=== PATIENT | female | born 1965 | race Caucasian/White ===

== ENCOUNTER 2019-12-01 08:59 | Outpatient (CLI) | payer MEDICARE, SELFPAY ==
[2019-12-01 09:13] LABS: Basophils Absolute Auto 0.05 K/mm3 (0.00-0.10); Basophils Percent Auto 0.6 % (0.0-1.0); Eosinophils Absolute Auto 0.21 K/mm3 (0.02-0.50); Eosinophils Percent Auto 2.4 % (1.0-6.0); Hematocrit 45.3 % (35.0-49.0); Hemoglobin 15.5 g/dL (12.0-15.0); Immature Granulocyte Absolute 0.04 K/mm3 (0.00-0.00); Immature Granulocyte Percent A 0.5 % (0.0-0.0); Lymphocytes Absolute Auto 1.72 K/mm3 (1.10-4.50); Lymphocytes Percent Auto 19.6 % (18.0-42.0); Mean Corpuscular HGB Conc 34.2 g/dL (32.0-36.0); Mean Corpuscular Hemoglobin 29.8 pg (27.0-31.0); Mean Corpuscular Volume 87.1 fL (78.0-102.0); Mean Platelet Volume 10.3 fl (9.2-11.8); Monocytes Absolute Auto 0.57 K/mm3 (0.10-0.90); Monocytes Percent Auto 6.5 % (2.0-11.0); Neutrophils Absolute Auto 6.2 K/mm3 (1.7-7.2); Neutrophils Percent Auto 70.4 % (50.0-70.0); Platelet Count Result 262 K/mm3 (150-420); Red Cell Distribution Width 12.1 % (11.6-14.4); White Blood Count 8.8 K/mm3 (4.8-10.8)
[2019-12-01 09:14] LABS: Add Urine Microscopic? NO; Appearance Urine Clear (Clear); Bilirubin Urine Negative (Negative); Blood Urine Negative (Negative); Color Urine Yellow (Yellow); Glucose Urine UA Negative (Negative); Ketones Urine Negative (Negative); Leukocyte Esterase Ur Negative (Negative); Nitrate Urine Negative (Negative); Protein Urine Negative (Negative); Specific Grav Ur <= 1.005 (1.010-1.020); Urobilinogen Urine 0.2 mg/dL (0.2-1.0)
[2019-12-01 10:30] LABS: Alanine Aminotransferase 33 U/L (14-59); Albumin Level 3.8 g/dL (3.4-5.0); Alkaline Phosphatase 59 U/L (46-116); Anion Gap 15.7 mmol/L (7-16); Aspartate Amino Transferase 26 U/L (15-37); Bilirubin,Total 0.2 mg/dL (0.00-1.00); Blood Urea Nitrogen 4 mg/dL (7-18); Calcium 9.1 mg/dL (8.5-10.1); Carbon Dioxide 29 mmol/L (21-32); Chloride 104 mmol/L (98-108); Cholesterol 174 mg/dL (0-200); Estimated Glomerular Filt Rate > 60; Glucose 113 mg/dL (70-99); HDL Direct 28 mg/dL (40-60); LDL Cholesterol Calculated 96 mg/dL (<130); Osmolality Calculated 297 mOsm/kg (285-295); Potassium 3.7 mmol/L (3.5-5.1); Sodium 145 mmol/L (136-145); Thyroid Stimulating Hormone 1.53 uIU/mL (0.36-3.74); Triglycerides 251 mg/dL (0-150)
== END 2019-12-01 09:00 | disposition home or self-care (01) ==
LOC: CHSLAB 09:02
PROVIDERS: PCP Internal Medicine; Visit Provider Internal Medicine
DX: E78.5 Hyperlipidemia, unspecified (principal); I10 Essential (primary) hypertension
CPT/HCPCS: 36415; 80053; 80061; 81003; 84443; 85025

== ENCOUNTER 2021-01-18 12:11 | Emergency (ER) | payer MEDICARE, MEDICAID, SELFPAY ==
[2021-01-18 12:20] VITALS: BP 151/81; PULSE 79; RESP 16; TEMP 37.1; O2SAT 96
--- NOTE | 2021-01-18 13:05 | ED.EYEPROB ---
HPI - Eye Problem General Chief complaint: Eye Problems Stated complaint: swelling around R eye Time Seen by Provider: 01/18/21 12:50 Source: patient Mode of arrival: ambulatory Limitations: no limitations History of Present Illness HPI Narrative: Patient comes in with swelling in lower right eyelid, medial aspect, which is not painful, but has continued to swell. She has been putting a warm washcloth on it hoping it will drain. Discomfort there is dull and mild, ongoing. She has had no fever or chills. Related Data Allergies Allergy/AdvReac Type Severity Reaction Status Date / Time citalopram Allergy Mild Hives Verified 01/18/21 13:33 iodine Allergy Mild Hives Verified 01/18/21 13:33 iohexol Allergy Hives Verified 01/18/21 13:33 [From contrast - CT, X-RAY] codeine AdvReac Mild Nausea Verified 01/18/21 13:33 hydrocodone AdvReac Mild Nausea Unverified 01/18/21 13:33 Review of Systems Constitutional: Constitutional: Reports no additional constitutional complaints Eyes: Comments: eye swelling in lower lid developed over days and has not been painful. ENT: Reports system reviewed and no additional complaints, except as documented Cardiovascular: Cardiovascular: Reports no additional cardiovascular complaints Respiratory: Respiratory: Reports no additional respiratory complaints Gastrointestinal: Gastrointestinal: Reports no additional gastrointestinal complaints Genitourinary: Genitourinary: Reports no additional female genitourinary complaints Musculoskeletal: Musculoskeletal: Reports no additional musculoskeletal complaints Integumentary/Breasts: Skin/Breast: Reports system reviewed and no additional complaints, except as docu Neurologic: Reports system reviewed and no additional complaints, except as documented Psychiatric: Psychiatric: Reports no additional psychiatric complaints Endocrine: Endocrine: Reports no additional endocrine complaints Hematologic/Lymphatic: Hematologic/Lymphatic: Reports no additional hematologic/lymphatic complaints Allergic/Immunologic: Allergic/Immunologic: Reports no additional allergic/immunologic complaints PMFSH Past Medical History Medical History Bipolar disorder Chronic obstructive pulmonary disease Leg fracture, left Surgical History Surgical History H/O section History of cryosurgery Family History Family History Father Acute myocardial infarction Mother Acute myocardial infarction Cerebrovascular accident Social History Social History Smoking packs per day: 1 Smoking cigarettes per day: 20.0 Years smoked: 30 Smoking pack-years: 30.00 Smoking status: Current every day smoker Tobacco type: cigarettes Second hand tobacco smoke exposure: No Alcohol intake: never Substance use: never Substance use type: does not use Gender identity (if verbalized by the patient): Female Spiritual care concerns: No Agree to blood products: Yes Exam Const: General: no acute distress and alert Orientation/consciousness: patient oriented x3 HENMT: Ears: external ears normal and TM's normal bilaterally General nose exam: Normal external nose present and Normal nares present Mouth: Yes Normal oral and palatal mucosa present Throat: posterior oropharynx normal Eyes: Conjunctivae: conjunctivae normal Other: She has what appears to be a chalazion on the lower lid on the right side. This is not really tender to touch Neck: Neck: normal visual inspection Chest: Chest palpation & inspection: normal inspection of the chest Resp: Effort & Inspection: normal respiratory effort Auscultation: clear to auscultation bilaterally Cardio: Rate: regular rate Rhythm: regular rhythm GI: Auscultation: normal bowel sounds Skin: General skin e
[2021-01-18 13:30] VITALS: RESP 16
== END 2021-01-18 13:30 | disposition home or self-care (01) ==
PROVIDERS: Emergency Provider Emergency Medicine; PCP Internal Medicine
DX: H00.12 Chalazion right lower eyelid (principal)
CPT/HCPCS: 99281; 99282

== ENCOUNTER 2021-02-03 10:13 | Outpatient (CLI) | payer MEDICARE, SELFPAY ==
[2021-02-03 10:28] LABS: Basophils Absolute Auto 0.04 K/mm3 (0.00-0.10); Basophils Percent Auto 0.5 % (0.0-1.0); Eosinophils Absolute Auto 0.11 K/mm3 (0.02-0.50); Eosinophils Percent Auto 1.3 % (1.0-6.0); Hematocrit 45.6 % (35.0-49.0); Hemoglobin 15.4 g/dL (12.0-15.0); Immature Granulocyte Absolute 0.06 K/mm3 (0.00-0.00); Immature Granulocyte Percent A 0.7 % (0.0-0.0); Lymphocytes Absolute Auto 2.32 K/mm3 (1.10-4.50); Lymphocytes Percent Auto 27.3 % (18.0-42.0); Mean Corpuscular HGB Conc 33.8 g/dL (32.0-36.0); Mean Corpuscular Hemoglobin 29.3 pg (27.0-31.0); Mean Corpuscular Volume 86.9 fL (78.0-102.0); Mean Platelet Volume 10.4 fl (9.2-11.8); Monocytes Absolute Auto 0.64 K/mm3 (0.10-0.90); Monocytes Percent Auto 7.5 % (2.0-11.0); Neutrophils Absolute Auto 5.3 K/mm3 (1.7-7.2); Neutrophils Percent Auto 62.7 % (50.0-70.0); Platelet Count Result 235 K/mm3 (150-420); Red Blood Count 5.25 M/mm3 (4.20-5.40); White Blood Count 8.5 K/mm3 (4.8-10.8)
[2021-02-03 10:32] LABS: Add Urine Microscopic? NO; Appearance Urine Clear (Clear); Bilirubin Urine Negative (Negative); Blood Urine Negative (Negative); Color Urine Yellow (Yellow); Glucose Urine UA Negative (Negative); Ketones Urine Negative (Negative); Leukocyte Esterase Ur Negative (Negative); Nitrate Urine Negative (Negative); Protein Urine Negative (Negative); Specific Grav Ur <= 1.005 (1.010-1.020); Urobilinogen Urine 0.2 mg/dL (0.2-1.0); pH Urine 5.5 (5.0-8.0)
[2021-02-03 11:10] LABS: Alanine Aminotransferase 34 U/L (14-59); Albumin Level 3.9 g/dL (3.4-5.0); Alkaline Phosphatase 68 U/L (46-116); Anion Gap 7 mmol/L (8-16); Aspartate Amino Transferase 19 U/L (15-37); Bilirubin,Total 0.4 mg/dL (0.00-1.00); Blood Urea Nitrogen 5 mg/dL (7-18); Calcium 9.3 mg/dL (8.5-10.1); Carbon Dioxide 32 mmol/L (21-32); Chloride 100 mmol/L (98-108); Cholesterol 175 mg/dL (0-200); Estimated Glomerular Filt Rate > 60; Glucose 74 mg/dL (70-99); HDL Direct 29 mg/dL (40-60); LDL Cholesterol Calculated 108 mg/dL (<130); Osmolality Calculated 284 mOsm/kg (285-295); Potassium 3.1 mmol/L (3.5-5.1); Sodium 139 mmol/L (136-145); Thyroid Stimulating Hormone 1.05 uIU/mL (0.36-3.74); Total Protein 7.2 g/dL (6.4-8.2); Triglycerides 190 mg/dL (0-150)
== END 2021-02-03 10:14 | disposition home or self-care (01) ==
LOC: CHSLAB 10:15
PROVIDERS: PCP Internal Medicine; Visit Provider Internal Medicine
DX: I10 Essential (primary) hypertension (principal); E78.5 Hyperlipidemia, unspecified
CPT/HCPCS: 36415; 80053; 80061; 81003; 83735; 84443; 85025

== ENCOUNTER 2021-02-15 09:43 | Outpatient (CLI) | payer MEDICARE, MEDICAID, SELFPAY ==
--- NOTE | ~2021-02-15 | MR_ITS ---
EXAMINATION: MR knee LT wo con DATE: 02/15/2021 10:58 INDICATION: Left knee pain. TECHNIQUE: Magnetic resonance imaging (MRI) of the left knee was performed without intravenous contra st. Sequences included axial PD-weighted FS FSE, coronal PD-weighted FSE and PD-weighted FS FSE, sagi ttal PD-weighted FSE, and sagittal T2-weighted FS FSE. COMPARISON: Left knee radiographs 04/11/2019 FINDINGS: Medial compartment: There is an undersurface horizontal tear of body and posterior horn of medial meniscus. There is cart ilage surface irregularity of tibial condyle and femoral condyle. Lateral compartment: Lateral meniscus is normal. There is cartilage surface irregularity of tibial condyle. Femoral cartil age is normal. Patellofemoral compartment: Patellar cartilage is normal. Trochlear cartilage is normal. Ligaments and tendons: The anterior and posterior cruciate ligaments are normal. Medial collateral ligament and lateral bladimir ateral ligament complex are normal. The extensor mechanism is normal. Fluid: There is a small knee joint effusion. There is trace fluid in a Penaloza's cyst. There is mild prepatell ar bursitis. IMPRESSION: 1. Mild chondrosis of medial and lateral compartments. 2. Tear of medial meniscus. 3. Small knee joint effusion. Reviewed, dictated and finalized at location A.
== END 2021-02-15 09:44 | disposition home or self-care (01) ==
LOC: CHSIMG 09:45
PROVIDERS: PCP Internal Medicine; Visit Provider Internal Medicine
DX: M25.562 Pain in left knee (principal); M25.362 Other instability, left knee
CPT/HCPCS: 73721

== ENCOUNTER 2021-05-17 13:10 | Emergency (ER) | payer MEDICARE, MEDICAID, SELFPAY ==
--- NOTE | ~2021-05-17 | XR_ITS ---
EXAMINATION: XR chest 2V DATE: 05/17/2021 13:33 INDICATION: Cough and shortness of breath TECHNIQUE: PA and lateral views of the chest are obtained. COMPARISON: 10/25/2019 FINDINGS: The lungs are free of acute opacities. There is no pleural effusion or pneumothorax. The ca rdiomediastinal silhouette is normal. The visualized bones and soft tissues are unremarkable. IMPRESSION: 1. No acute cardiopulmonary abnormality. Reviewed, dictated and finalized at location A.
[2021-05-17 13:12] VITALS: BP 145/81; PULSE 97; RESP 24; TEMP 36.6; O2SAT 96
--- NOTE | 2021-05-17 13:15 | ECG_ITS ---
Measurements Intervals [place] Rate: 83 P: 65 NV: 173 QRS: 142 QRSD: 84 T: 50 QT: 377 QTc: 445 Interpretive Statements SINUS RHYTHM INCOMPLETE RIGHT BUNDLE BRANCH BLOCK LOW VOLTAGE- PRECORDIAL LEADS BASELINE ARTIFACT- I, II, AVR, AVL, V4 BORDERLINE ECG Electronically Signed On 05-17-2021 20:01:03 CDT by Casimiro Fritz D.O.
[2021-05-17 13:41] LABS: Basophils Absolute Auto 0.1 K/mm3 (0.0-0.1); Basophils Percent Auto 0.4 % (0.2-1.2); Eosinophils Absolute Auto 0.1 K/mm3 (0-0.3); Eosinophils Percent Auto 0.7 % (0-4.4); Hematocrit 46.6 % (37.0-47.0); Hemoglobin 15.5 g/dL (12.0-15.0); Immature Granulocyte Absolute 0.05 K/mm3 (0.00-0.031); Immature Granulocyte Percent A 0.4 % (0-0.5); Lymphocytes Absolute Auto 1.43 K/mm3 (0.9-3.2); Lymphocytes Percent Auto 12.5 % (18.3-44.2); Mean Corpuscular HGB Conc 33.3 g/dl (32-36); Mean Corpuscular Hemoglobin 28.7 pg (26-34); Mean Corpuscular Volume 86.3 fl (80-100); Mean Platelet Volume 10.6 fl (7.4-10.4); Monocytes Absolute Auto 0.6 K/mm3 (0.1-0.6); Monocytes Percent Auto 5.6 % (2.6-8.5); Neutrophils Absolute Auto 9.2 K/mm3 (1.3-6.7); Neutrophils Percent Auto 80.4 % (45.5-73.1); Platelet Count Result 230 k/mm3 (150-375); Red Cell Distribution Width 12.9 % (11.5-14.5); White Blood Count 11.4 K/mm3 (4.5-10.0)
[2021-05-17 13:53] LABS: Anion Gap 11 mmol/L (8-16); Blood Urea Nitrogen 4 mg/dL (7-17); Calcium 9.8 mg/dL (8.4-10.2); Carbon Dioxide 26 mmol/L (22-30); Chloride 104 mmol/L (98-107); Estimated CRCL calculation 73 ml/min; Estimated Glomerular Filt Rate > 60; Glucose 106 mg/dL (65-110); Potassium 3.5 mmol/L (3.4-5.0); Sodium 141 mmol/L (137-145)
[2021-05-17 15:15] LABS: Alanine Aminotransferase 33 U/L (4-35); Albumin Level 4.7 g/dL (3.5-5.1); Alkaline Phosphatase 61 U/L (38-126); Aspartate Amino Transferase 33 U/L (14-36); Bilirubin,Total 0.3 mg/dL (0.2-1.3)
[2021-05-17] MEDS: IPRATROPIUM BR 0.02% INH SOLN 0.5 MG/2.5 ML VIAL INHALATION ×3 (15:18→16:16)
[2021-05-17] MEDS: ALBUTEROL SULFATE NEB 2.5 MG/0.5 ML INH 5 MG INHALATION ×3 (15:18→16:16)
--- NOTE | 2021-05-17 15:20 | ED.SOB ---
HPI - SOB/Dyspnea General Chief Complaint: Shortness of Breath/Dyspnea Stated Complaint: URI, fever, COPD Time Seen by Provider: 05/17/21 14:31 History of Present Illness HPI Narrative: Patient presents with shortness of breath. She reports a history of COPD. Shortness of breath started today and been associated with a cough. She reports her son came home from school and had a cough and feels she picked up an infection that he had. She denies fevers. Episode similar to this years ago where she had to be admitted for antibiotics and steroids. She denies any fevers Related Data Allergies Allergy/AdvReac Type Severity Reaction Status Date / Time citalopram Allergy Mild Hives Verified 05/17/21 15:28 iodine Allergy Mild Hives Verified 05/17/21 15:28 iohexol Allergy Hives Verified 05/17/21 15:28 [From contrast - CT, X-RAY] codeine AdvReac Mild Nausea Verified 05/17/21 15:28 hydrocodone AdvReac Mild Nausea Verified 05/17/21 15:28 Review of Systems Review of Systems: CONSTITUTIONAL: Denies fever, chills, or sweats. EYES: Denies visual changes, redness, or discharge. ENT: Denies rhinorrhea, congestion, sore throat, or otalgia. CARDIOVASCULAR: Denies chest pain, palpitations, or edema. RESPIRATORY: Reports cough and shortness of breath GASTROINTESTINAL: Denies abdominal pain, nausea, vomiting, or diarrhea. GENITOURINARY: Denies dysuria or hematuria. SKIN: Denies rash or itching. MUSCULOSKELETAL: Denies back pain, joint pain, or myalgia. NEUROLOGIC: Denies headache, numbness, dizziness, or weakness. PSYCHIATRIC: Denies anxiety or depression. All systems reviewed & are unremarkable except as noted in HPI and below PMFSH Past Medical History Medical History Bipolar disorder Chronic obstructive pulmonary disease Leg fracture, left Surgical History Surgical History H/O section History of cryosurgery Family History Family History Father Acute myocardial infarction Mother Acute myocardial infarction Cerebrovascular accident Social History Social History Smoking packs per day: 1 Smoking cigarettes per day: 20.0 Years smoked: 30 Smoking pack-years: 30.00 Smoking status: Current every day smoker Tobacco type: cigarettes Second hand tobacco smoke exposure: No Alcohol intake: never Substance use: never Substance use type: does not use Gender identity (if verbalized by the patient): Female Spiritual care concerns: No Agree to blood products: Yes Exam Narrative: GENERAL: Well-appearing, well-nourished, and in no acute distress. HEAD: Normocephalic, atraumatic. EYES: PERRLA and EOMI. ENT: Nares clear, no rhinorrhea or epistaxis. Mucous membranes moist. NECK: Supple. No masses. No JVD CHEST: Diminished aeration in all lung hdz diffuse wheezing and rhonchi in all lung hdz HEART: Regular rate and rhythm. No murmur heard. Normal peripheral pulses. ABDOMEN: Soft, nontender, nondistended, normal active bowel sounds. EXTREMITIES: Normal range of motion. No edema. SKIN: Warm, dry, no rash. NEURO: No focal deficits. Alert and oriented x3. PSYCH: Normal mood and affect. Course Reevaluation(s) Reevaluation #1: Pain shortness feeling much improved repeat lung exam is with improved aeration and clear to auscultation Date: 05/17/21 Time: 16:51 Vital Signs Vital signs: Vital Signs Temperature 36.6 C 05/17/21 13:12 Pulse Rate 97 05/17/21 13:12 Respiratory Rate 24 H 05/17/21 13:12 Blood Pressure 145/81 H 05/17/21 13:12 Pulse Oximetry 96 05/17/21 13:12 Temperature 36.6 C 05/17/21 13:12 Pulse Rate 86 05/17/21 17:22 Respiratory Rate 16 05/17/21 17:22 Blood Pressure 144/92 H 05/17/21 17:22 Pulse Oximetry 93 05/17/21 17:22 MDM - SOB/D
[2021-05-17 15:21] VITALS: PULSE 71; RESP 20
[2021-05-17] MEDS: methylPREDNISolone SOD SUCC 125 MG VIAL IV PUSH (15:29)
[2021-05-17 15:38] VITALS: PULSE 77; RESP 21
[2021-05-17 16:15] VITALS: PULSE 80; RESP 18
[2021-05-17 16:32] VITALS: BP 137/76; PULSE 103; RESP 20; O2SAT 91
[2021-05-17 17:22] VITALS: BP 144/92; PULSE 86; RESP 16; O2SAT 93
== END 2021-05-17 17:23 | disposition home or self-care (01) ==
PROVIDERS: Emergency Medicine; Emergency Provider Emergency Medicine; PCP Internal Medicine
DX: J44.1 Chronic obstructive pulmonary disease with (acute) exacerbation (principal); F17.210 Nicotine dependence, cigarettes, uncomplicated
CPT/HCPCS: 36415; 71046; 80048; 80076; 85025; 93005; 94640; 96374; 99284; J2930

== ENCOUNTER 2021-05-18 09:06 | Inpatient (IN) | payer MEDICARE, MEDICAID, SELFPAY ==
[2021-05-18] VITALS (15 sets, daily range): BP systolic 104–166; BP diastolic 66–90; PULSE 75–117; RESP 15–24; TEMP 36.2–36.8; O2SAT 93–100; BMI 27.2
--- NOTE | ~2021-05-18 | XR_ITS ---
EXAMINATION: XR chest 2V DATE: 05/18/2021 10:17 INDICATION: Shortness of breath and cough, COPD exacerbation TECHNIQUE: PA and lateral views of the chest are obtained. COMPARISON: None available FINDINGS: The lungs are free of acute opacities. There is no pleural effusion or pneumothorax. The ca rdiomediastinal silhouette is normal. There is mild thoracic spondylosis. IMPRESSION: 1. No acute cardiopulmonary abnormality. Reviewed, dictated and finalized at location A.
--- NOTE | 2021-05-18 09:48 | ECG_ITS ---
Measurements Intervals [place] Rate: 95 P: 60 NE: 161 QRS: 124 QRSD: 90 T: 29 QT: 368 QTc: 465 Interpretive Statements SINUS RHYTHM RIGHT AXIS DEVIATION INCOMPLETE RIGHT BUNDLE BRANCH BLOCK LOW VOLTAGE- PRECORDIAL LEADS BASELINE ARTIFACT- I, II, III BORDERLINE ECG Electronically Signed On 05-18-2021 12:06:25 CDT by Casimiro Fritz D.O.
[2021-05-18 10:11] LABS: Basophils Percent Auto 0.2 % (0.2-1.2); Hematocrit 47.2 % (37.0-47.0); Immature Granulocyte Absolute 0.18 K/mm3 (0.00-0.031); Immature Granulocyte Percent A 0.8 % (0-0.5); Lymphocytes Absolute Auto 0.57 K/mm3 (0.9-3.2); Lymphocytes Percent Auto 2.7 % (18.3-44.2); Mean Corpuscular HGB Conc 33.9 g/dl (32-36); Mean Corpuscular Hemoglobin 29.1 pg (26-34); Mean Corpuscular Volume 85.8 fl (80-100); Mean Platelet Volume 10.7 fl (7.4-10.4); Monocytes Absolute Auto 0.6 K/mm3 (0.1-0.6); Monocytes Percent Auto 2.9 % (2.6-8.5); Neutrophils Absolute Auto 19.9 K/mm3 (1.3-6.7); Neutrophils Percent Auto 93.4 % (45.5-73.1); Platelet Count Result 276 k/mm3 (150-375); Red Cell Distribution Width 12.9 % (11.5-14.5); White Blood Count 21.3 K/mm3 (4.5-10.0)
[2021-05-18 10:28] LABS: Anion Gap 14 mmol/L (8-16); Blood Urea Nitrogen 9 mg/dL (7-17); Carbon Dioxide 22 mmol/L (22-30); Chloride 100 mmol/L (98-107); Estimated CRCL calculation 56 ml/min; Estimated Glomerular Filt Rate > 60; Glucose 148 mg/dL (65-110); Potassium 3.1 mmol/L (3.4-5.0); Sodium 136 mmol/L (137-145)
[2021-05-18 10:42] LABS: Hyperchromasia 2+ (NORMAL); Platelet Estimate Adequate (Adequate)
--- NOTE | 2021-05-18 11:55 | ED.GENADULT ---
HPI - General Adult General Chief complaint: Shortness of Breath/Dyspnea Stated complaint: copd exacerbation Time Seen by Provider: 05/18/21 10:56 Source: patient Mode of arrival: ambulatory Limitations: no limitations History of Present Illness HPI narrative: Patient presents for evaluation of difficulty breathing since yesterday. She reports shortness of breath with a nonproductive cough. She was evaluated here last evening. Imaging was unremarkable. Patient was offered admission, which she declined. Patient was diagnosed with COPD exacerbation and was discharged with prednisone and azithromycin. 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 She states that her symptoms have worsened since yesterday. Her symptoms were preceded by which she states is a common cold experienced by her son on Wednesday of last week. She states that he has not received COVID vaccine, although she has received both doses of her Moderna COVID vaccine, with most recent dose in January. She denies fever, chills, chest pain and leg swelling. She has experienced nausea and vomiting. She has tried using neb treatments, most recently this morning, without significant improvement in her symptoms. She does smoke 1 ppd but states that she has been unable to smoke since the time of symptom onset. No hx of VTE. Related Data Home Medications Medication Instructions Recorded Confirmed albuterol sulfate INHALATION 05/18/21 amlodipine 05/18/21 pravastatin 05/18/21 Allergies Allergy/AdvReac Type Severity Reaction Status Date / Time iodine Allergy Severe Anaphylaxis Verified 05/18/21 12:12 iohexol Allergy Severe Anaphylaxis Verified 05/18/21 12:12 [From contrast - CT, X-RAY] codeine AdvReac Severe Seizure Verified 05/18/21 12:12 hydrocodone AdvReac Severe Seizure Verified 05/18/21 12:12 Review of Systems Review of Systems: CONSTITUTIONAL: Denies fever, chills, or sweats. EYES: Denies visual changes, redness, or discharge. ENT: Denies rhinorrhea, congestion, sore throat, or otalgia. CARDIOVASCULAR: Denies chest pain, palpitations, or edema. RESPIRATORY: Reports cough, wheezing and SOB GASTROINTESTINAL: Reports nausea and vomiting. Denies abdominal pain and diarrhea GENITOURINARY: Denies dysuria or hematuria. SKIN: Denies rash or itching. MUSCULOSKELETAL: Denies back pain, joint pain, or myalgia. NEUROLOGIC: Denies headache, numbness, dizziness, or weakness. PSYCHIATRIC: Denies anxiety or depression. [facility] Past Medical History Medical History (Updated 05/18/21 @ 15:22 by BINH Zhong, ) Bipolar disorder Chronic obstructive pulmonary disease Hypertension Leg fracture, left Surgical History Surgical History H/O section History of History of cryosurgery Family History Family History Father Acute myocardial infarction Mother Acute myocardial infarction Cerebrovascular accident Social History Social History Smoking packs per day: 1 Smoking cigarettes per day: 20.0 Years smoked: 30 Smoking pack-years: 30.00 Smoking status: Current every day smoker Tobacco type: cigarettes Second hand tobacco smoke exposure: No Alcohol intake: never Substance use: never Substance use type: does not use Gender identity (if verbalized by the patient): Female Spiritual care concerns: No Agree to blood products: Yes Exam Narrative: GENERAL: Well-appearing, well-nourished, and in no acute distress. HEAD: Normocephalic, atraumatic. EYES: PERRLA and EOMI. ENT: Nares clear, no rhinorrhea or epistaxis. Mucous membranes moist. Oropharynx without tonsillar hypertrophy exudate or other lesions. Bilateral TMs pearly orellana nonbulging NECK: Supple. No adenopathy or masses. No caroti
[2021-05-18] MEDS: ALBUTEROL SULFATE NEB 2.5 MG/3 ML INH 10 MG INHALATION (12:11)
[2021-05-18 13:10] LABS: Lactic Acid Reflex 3.5 mmol/L (0.7-2.1)
[2021-05-18 13:12] LABS: Alanine Aminotransferase 36 U/L (4-35); Albumin Level 5.1 g/dL (3.5-5.1); Alkaline Phosphatase 64 U/L (38-126); Aspartate Amino Transferase 32 U/L (14-36); Bilirubin,Total 0.3 mg/dL (0.2-1.3)
[2021-05-18] MEDS: methylPREDNISolone SOD SUCC 125 MG VIAL IV PUSH (13:15)
[2021-05-18 13:16] LABS: INR 0.9; Prothrombin Time 11.9 Seconds (11.1-14.7)
[2021-05-18 13:17] LABS: Partial Thromboplastin Time 26.4 SECONDS (22.3-36.8)
[2021-05-18] MEDS: SODIUM CHLORIDE 0.9% IV 1,000 ML 999 ML IV CONT ×3 (13:17→19:44)
[2021-05-18 13:19] LABS: D Dimer 0.31 ug/mL (<0.48)
[2021-05-18 13:22] LABS: Troponin I < 0.012 ng/mL (0.000-0.034)
--- NOTE | 2021-05-18 13:35 | PC.NURSE ---
cool wash cloth provided and will request nausea medication from EDP
[2021-05-18] MEDS: ONDANSETRON INJ 4 MG/2 ML VIAL IV PUSH (15:55)
[2021-05-18 15:58] LABS: Reflex Lactic Acid Yes or No Add Lactic
[2021-05-18 16:20] LABS: Troponin I < 0.012 ng/mL (0.000-0.034)
--- NOTE | 2021-05-18 19:06 | PC.NURSE ---
Patient was provided with food from ED and [employer].
[2021-05-18 19:23] LABS: Lactic Acid 4.1 mmol/L (0.7-2.1)
[2021-05-18] MEDS: methylPREDNISolone SOD SUCC 125 MG VIAL 60 MG IV PUSH (19:44)
--- NOTE | 2021-05-18 22:48 | PM.IMHP ---
H&P: HPI History of Present Illness Date/Time: 05/18/21 22:48 Chief Complaint: Shortness of breath Narrative: 55-year-old female with a past medical history of COPD, hypertension and chronic tobacco use who presented to the ER on 05/17/2021 for shortness of breath and decided to leave and return home returned again today for or recurrent shortness of breath. The patient reports that she started having difficulty breathing on the . She had been exposed to her son who had had an upper respiratory tract infection. She herself has received a COVID vaccine with her 2nd dose in January. She had received azithromycin, Rocephin and Solu-Medrol in the ER on the . She was discharged with a script for prednisone and antibiotics but was unable to pick them up at the pharmacy was closed. She has been using her nebulizer treatments at home without significant improvement in her symptoms. She does still continue smoked 1 pack per day but has not been able to smoke over the last couple of days due to her symptoms. Review of Systems Review of Systems: 12 systems were reviewed with pertinent positives and negatives per HPI. Except as documented in the HPI, all other systems were reviewed and are negative. [facility] Past Medical History Medical History (Updated 05/18/21 @ 23:02 by Roseline Pang DO) Bipolar disorder Chronic obstructive pulmonary disease Hypertension Leg fracture, left Polycythemia secondary to smoking Surgical History Surgical History H/O section History of History of cryosurgery Family History Family History Father Acute myocardial infarction Mother Acute myocardial infarction Cerebrovascular accident Social History Social History Smoking packs per day: 1 Smoking cigarettes per day: 20.0 Years smoked: 30 Smoking pack-years: 30.00 Smoking status: Current every day smoker Tobacco type: cigarettes Second hand tobacco smoke exposure: No Alcohol intake: never Substance use: never Substance use type: does not use Gender identity (if verbalized by the patient): Female Spiritual care concerns: No Agree to blood products: Yes Meds Home Medications and Allergies Home Medications Medication Instructions Recorded Confirmed Type olanzapine 5 mg PO HS #30 tablet 09/03/19 05/18/21 Rx albuterol sulfate 2 inh INHALATION Q4-6H PRN 05/18/21 05/18/21 History amlodipine 10 mg PO HS 05/18/21 05/18/21 History montelukast [Singulair] 10 mg PO HS 05/18/21 05/18/21 History pravastatin 10 mg PO HS 05/18/21 05/18/21 History Allergies Allergy/AdvReac Type Severity Reaction Status Date / Time iodine Allergy Severe Anaphylaxis Verified 05/18/21 12:12 iohexol Allergy Severe Anaphylaxis Verified 05/18/21 12:12 [From contrast - CT, X-RAY] codeine AdvReac Severe Seizure Verified 05/18/21 12:12 hydrocodone AdvReac Severe Seizure Verified 05/18/21 12:12 Vital Signs Vital Signs - 24 hr 05/18/21 09:18 05/18/21 12:00 05/18/21 12:11 Temperature 97.6 F 98.0 F Pulse Rate 108 H 85 94 Respiratory Rate 18 24 H 15 Blood Pressure 113/76 104/90 Pulse Oximetry 99 93 05/18/21 12:17 05/18/21 13:15 05/18/21 13:20 Temperature Pulse Rate 94 110 H Respiratory Rate 15 16 Blood Pressure Pulse Oximetry 97 05/18/21 13:29 05/18/21 14:01 05/18/21 14:31 Temperature 97.8 F Pulse Rate 117 H 102 H 98 Respiratory Rate 16 16 15 Blood Pressure 149/78 H 122/70 123/76 Pulse Oximetry 97 97 98 05/18/21 17:00 05/18/21 18:49 05/18/21 18:50 Temperature 97.5 F L 98.1 F Pulse Rate 81 75 Respiratory Rate 19 17 Blood Pressure 146/89 H 134/75 Pulse Oximetry 100 100 100 05/18/21 19:45 05/18/21 19:46 05/18/21 20:00 Temperature 98.3 F 97.2 F L Pulse Rate 84 100 Respiratory Rate 21 H 18 Blood Pressure
[2021-05-18] MEDS: amLODIPine BESYLATE 5 MG TABLET 10 MG PO (23:00)
[2021-05-19] VITALS (13 sets, daily range): BP systolic 136–159; BP diastolic 62–84; PULSE 74–91; RESP 16–20; TEMP 36.1–36.6; O2SAT 90–98
[2021-05-19] MEDS: amLODIPine BESYLATE 5 MG TABLET PO (00:35)
[2021-05-19] MEDS: PRAVASTATIN SODIUM 10 MG TABLET PO ×2 (00:35→21:59)
[2021-05-19] MEDS: OLANZapine 5 MG TABLET PO ×2 (00:35→21:58)
[2021-05-19] MEDS: MONTELUKAST SODIUM 10 MG TABLET PO ×2 (00:37→21:58)
[2021-05-19] MEDS: ALBUTEROL SULFATE NEB 2.5 MG/0.5 ML INH 5 MG INHALATION ×4 (04:55→21:11)
[2021-05-19] MEDS: methylPREDNISolone SOD SUCC 40 MG VIAL IV PUSH ×3 (05:31→21:58)
[2021-05-19 07:38] LABS: Basophils Percent Auto 0.2 % (0.2-1.2); Hemoglobin 14.3 g/dL (12.0-15.0); Immature Granulocyte Absolute 0.31 K/mm3 (0.00-0.031); Immature Granulocyte Percent A 1.7 % (0-0.5); Lymphocytes Absolute Auto 0.62 K/mm3 (0.9-3.2); Lymphocytes Percent Auto 3.5 % (18.3-44.2); Mean Corpuscular HGB Conc 32.5 g/dl (32-36); Mean Corpuscular Volume 89.2 fl (80-100); Mean Platelet Volume 11.1 fl (7.4-10.4); Monocytes Absolute Auto 0.4 K/mm3 (0.1-0.6); Neutrophils Absolute Auto 16.4 K/mm3 (1.3-6.7); Neutrophils Percent Auto 92.6 % (45.5-73.1); Platelet Count Result 244 k/mm3 (150-375); Red Blood Count 4.93 M/mm3 (4.2-5.4); Red Cell Distribution Width 13.4 % (11.5-14.5); White Blood Count 17.7 K/mm3 (4.5-10.0)
[2021-05-19 08:56] LABS: Anion Gap 4 mmol/L (8-16); Blood Urea Nitrogen 10 mg/dL (7-17); Calcium 9.2 mg/dL (8.4-10.2); Carbon Dioxide 28 mmol/L (22-30); Chloride 106 mmol/L (98-107); Estimated CRCL calculation 73 ml/min; Estimated Glomerular Filt Rate > 60; Glucose 136 mg/dL (65-110); Sodium 138 mmol/L (137-145)
[2021-05-19 09:09] LABS: Glucose Point of Care 119 mg/dl (65-105)
[2021-05-19 09:42] LABS: Lactic Acid Reflex 2.7 mmol/L (0.7-2.1)
--- NOTE | 2021-05-19 11:56 | PM.IMPN ---
Progress Note: A&P Assessment and Plan (1) COPD exacerbation: Code(s): J44.1 - Chronic obstructive pulmonary disease with (acute) exacerbation Status: Acute Assessment and Plan: Diffuse wheezing noted on exam. Continue with IV Solu-Medrol q8h Albuterol and Atrovent nebs q6h Will discontinue antibiotics. No change in color or volume of sputum. Supportive care. Maintaining adequate oxygenation on room air. Supplemental O2 as needed with goal saturation 90% or above. (2) Tobacco dependence: Code(s): F17.200 - Nicotine dependence, unspecified, uncomplicated Status: Acute Assessment and Plan: Smokes 1-2 packs per day Tobacco cessation was discussed in detail. Continue with nicotine patch. (3) Lactic acidosis: Code(s): E87.2 - Acidosis Status: Acute Assessment and Plan: Elevated at presentation at 3.5, peak at 5.0 and decline down to 2.7 today. Etiology not entirely clear, however suspect may be related to albuterol. She has received multiple breathing treatments that could contribute to lactic acidosis. No concerns for infectious etiology/sepsis. No evidence to suggest ischemia. Repeat lactic tomorrow (4) Leukocytosis: Code(s): D72.829 - Elevated white blood cell count, unspecified Status: Acute Assessment and Plan: White count elevated up to 21.3. This is likely related to IV steroids and is improving. 17.7 today. Monitor CBC with diff (5) SIRS (systemic inflammatory response syndrome): Code(s): R65.10 - Systemic inflammatory response syndrome (SIRS) of non-infectious origin without acute organ dysfunction Status: Acute Assessment and Plan: Patient meets SIRS criteria with leukocytosis, tachypnea, and lactic acidosis. No signs/symptoms to suggest infectious etiology. Discontinuing antibiotics as noted above. Tachypnea resolved. Lactic acidosis and leukocytosis improving. Will continue to monitor. (6) Hypokalemia: Code(s): E87.6 - Hypokalemia Status: Acute Assessment and Plan: Resolved. Potassium is 4.0 today. Monitor BMP (7) Person under investigation for COVID-19: Code(s): Z20.822 - Contact with and (suspected) exposure to COVID-19 Status: Acute Assessment and Plan: Recent exposure to her son who had cold symptoms, did not to get tested for COVID-19. She did receive both doses of Moderna vaccine in January. COVID-19 test pending. Continue with isolation precautions while awaiting results. Maintaining adequate oxygenation on room air. Subjective Date/time seen: 05/19/21 11:56 Interval history: Date of service: 05/19/2021 Donna Sharp is a 55-year-old female with history of COPD, hypertension, DERICK, bipolar disorder, and tobacco abuse who is seen in follow-up for COPD exacerbation. She is feeling better today. Her shortness of breath has improved somewhat. She is still having MORALES when ambulating to the bathroom. Continues to endorse wheezing and chest congestion. Reports cough occasionally productive of clear sputum. Denies orthopnea or PND. Denies abdominal pain, nausea, vomiting, fever, or chills. Reports some lightheadedness after having a coughing fit. She denies sinus congestion. No nasal drainage. Denies anosmia or dysgeusia. No urinary symptoms. Reports regular bowel movements. Endorses steroid cravings and requests a nicotine patch. Review of Systems Review of Systems: All systems reviewed & are unremarkable except as noted in HPI and below Exam Narrative: Ms. Sharp is a well-nourished, well-appearing 55-year-old female who is sitting up in bed. She appears comfortable and is in NARD. Neuro: awake, alert and oriented x4, speech clear, no focal neuro deficits noted HEENMT: normocephalic, atraumatic, EOMI, sclerae anicteric, moist oral mucosa Neck: supple, no lymphadenopathy Respiratory: Diffuse expirat
[2021-05-19] MEDS: NICOTINE (*PBKC) 21 MG PATCH 1 PATCH TRANSDERM (12:10)
[2021-05-19] MEDS: ENOXAPARIN 40 MG/0.4 ML SYRINGE SUB-Q (12:21)
[2021-05-19 12:23] LABS: Reflex Lactic Acid Yes or No Add Lactic
[2021-05-19 13:09] LABS: Lactic Acid 2.5 mmol/L (0.7-2.1)
[2021-05-19] MEDS: IPRATROPIUM BR 0.02% INH SOLN 0.5 MG/2.5 ML VIAL INHALATION ×2 (16:27→21:11)
[2021-05-19 18:30] LABS: SARS-CoV-2 RNA PCR Negative
[2021-05-19] MEDS: LORazepam (*CRX) 0.5 MG TABLET PO (21:58)
[2021-05-19] MEDS: amLODIPine BESYLATE 5 MG TABLET 10 MG PO (21:58)
[2021-05-20 02:07] VITALS: PULSE 79; RESP 20
[2021-05-20] MEDS: ALBUTEROL SULFATE NEB 2.5 MG/0.5 ML INH 5 MG INHALATION ×2 (02:07→09:11)
[2021-05-20] MEDS: ALBUTEROL SULFATE NEB 2.5 MG/3 ML INH (02:07)
[2021-05-20] MEDS: IPRATROPIUM BR 0.02% INH SOLN 0.5 MG/2.5 ML VIAL INHALATION ×2 (02:07→09:11)
[2021-05-20] MEDS: methylPREDNISolone SOD SUCC 40 MG VIAL IV PUSH ×2 (05:30→13:52)
[2021-05-20 05:52] VITALS: BP 154/81; PULSE 82; RESP 18; TEMP 36.3; O2SAT 96
[2021-05-20 07:12] LABS: Hematocrit 47.9 % (37.0-47.0); Hemoglobin 15.5 g/dL (12.0-15.0); Mean Corpuscular HGB Conc 32.4 g/dl (32-36); Mean Corpuscular Hemoglobin 29.2 pg (26-34); Mean Corpuscular Volume 90.2 fl (80-100); Mean Platelet Volume 11.1 fl (7.4-10.4); Platelet Count Result 266 k/mm3 (150-375); Red Blood Count 5.31 M/mm3 (4.2-5.4); Red Cell Distribution Width 13.2 % (11.5-14.5); White Blood Count 16.4 K/mm3 (4.5-10.0)
[2021-05-20 08:00] VITALS: RESP 18; O2SAT 96
[2021-05-20 08:04] LABS: Anion Gap 8 mmol/L (8-16); Blood Urea Nitrogen 16 mg/dL (7-17); Calcium 9.7 mg/dL (8.4-10.2); Carbon Dioxide 30 mmol/L (22-30); Chloride 99 mmol/L (98-107); Estimated CRCL calculation 73 ml/min; Estimated Glomerular Filt Rate > 60; Glucose 133 mg/dL (65-110); Lactic Acid Reflex 1.3 mmol/L (0.7-2.1); Magnesium 2.2 mg/dL (1.6-2.3); Potassium 3.8 mmol/L (3.4-5.0); Sodium 137 mmol/L (137-145)
[2021-05-20 09:11] VITALS: PULSE 80; RESP 18
[2021-05-20] MEDS: NICOTINE (*PBKC) 21 MG PATCH 1 PATCH TRANSDERM (09:27)
[2021-05-20] MEDS: ENOXAPARIN 40 MG/0.4 ML SYRINGE SUB-Q (09:27)
--- NOTE | 2021-05-20 09:50 | PCRCNOTE ---
Window of time for administration has passed. See next scheduled administration.
[2021-05-20 09:53] VITALS: PULSE 92; RESP 18; O2SAT 96
--- NOTE | 2021-05-20 10:45 | WPDCDIQUERY2 ---
CDI Query Clarification Request -SIRS and Patient meets SIRS criteria with leukocytosis, tachypnea, and lactic acidosis has been documented Please clarify the non infectious cause of SIRS.
--- NOTE | 2021-05-20 13:30 | PM.DS ---
DS: Admitting Diagnosis Admitting Diagnosis COPD exacerbation DS: Discharge Diagnosis Discharge Diagnosis (1) COPD exacerbation: Code(s): J44.1 - Chronic obstructive pulmonary disease with (acute) exacerbation Status: Acute Assessment and Plan: Diffuse wheezing noted on exam at presentation. She was started on IV Solu-Medrol which was weaned and she will continue with p.o. prednisone x5 days as an outpatient. Received Albuterol and Atrovent nebs. Did not have signs or symptoms to suggest underlying bacterial infection, no change in color or volume of sputum. No need for antibiotic therapy. She maintain adequate oxygenation on room air. Continue with p.o. prednisone and albuterol at home. Follow-up with PCP (2) Tobacco dependence: Code(s): F17.200 - Nicotine dependence, unspecified, uncomplicated Status: Acute Assessment and Plan: Smokes 1-2 packs per day. Tobacco cessation was discussed in detail and she verbalized understanding. Nicotine patch applied during hospitalization. (3) Lactic acidosis: Code(s): E87.2 - Acidosis Status: Acute Assessment and Plan: Elevated at presentation at 3.5, peak at 5.0 and then normalized. Suspect this was related to. She received multiple breathing treatments, including on prior to presentation in the ED on 05/17/2021 as well. No findings to suggest infectious etiology/sepsis. No evidence to suggest ischemia. 1.3 on date of discharge. (4) Leukocytosis: Code(s): D72.829 - Elevated white blood cell count, unspecified Status: Acute Assessment and Plan: White count elevated up to 21.3. This is likely related to IV steroids and did so improved. 16.4 at time of discharge. (5) SIRS (systemic inflammatory response syndrome): Code(s): R65.10 - Systemic inflammatory response syndrome (SIRS) of non-infectious origin without acute organ dysfunction Status: Acute Assessment and Plan: Noninfectious. Patient met SIRS criteria on presentation with leukocytosis, tachypnea, and lactic acidosis. No signs/symptoms to support infectious etiology. Rocephin and azithromycin discontinued. Please see above. Leukocytosis felt to be due to steroids, lactic acidosis felt to be due to albuterol. Tachypnea resolved. (6) Hypokalemia: Code(s): E87.6 - Hypokalemia Status: Acute Assessment and Plan: Potassium 3.1 on admission and was supplemented. Subsequent potassium levels remained stable. (7) COVID-19 ruled out by laboratory testing: Code(s): Z20.822 - Contact with and (suspected) exposure to COVID-19 Status: Acute Assessment and Plan: The patient reported exposure to her son who had cold symptoms and was not tested for COVID-19, therefore could not confirm exposure. Negative test result on 05/18/2021. She did receive both doses of Moderna vaccine in January. DS: Summary Hospital Course Hospital Course: Date of admission: 05/18/2021 Date of discharge: 05/20/2021 Donna Sharp is a 55-year-old female with history of COPD, hypertension, DERICK, bipolar disorder, and tobacco abuse presented to the emergency department on 05/18/2021 with complaints of shortness of breath and nonproductive cough. She had been seen in the ED 1 day prior. At that time she was diagnosed with COPD exacerbation, however she declined admission and was discharged with prednisone and azithromycin. 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 At time of presentation, she was mildly tachycardic with additional vital signs stable, WBC 21.3, hemoglobin 16, hematocrit 47.2, potassium 3.1, additional electrolytes stable, lactic acid was 3.5, and CXR showed no acute cardiopulmonary findings. She was admitted to the hospitalist service for further evaluation management. Please see above for further details. She was treated w
== END 2021-05-20 14:30 | disposition home or self-care (01) | DRG 191 ==
LOC: ANHED 15:22 → ANH3MEDSUR 05-19 07:04
PROVIDERS: Emergency Medicine; Admitting Provider Internal Medicine; Emergency Provider Nurse Practitioner; PCP Internal Medicine; Visit Provider Physician Assistant
DX: J44.1 Chronic obstructive pulmonary disease with (acute) exacerbation (principal); E87.2 Acidosis; R65.10 Systemic inflammatory response syndrome (SIRS) of non-infectious origin without acute organ dysfunction; T48.6X5A Adverse effect of antiasthmatics, initial encounter; Z20.822 Contact with and (suspected) exposure to COVID-19; F17.210 Nicotine dependence, cigarettes, uncomplicated; D72.829 Elevated white blood cell count, unspecified; T38.0X5A Adverse effect of glucocorticoids and synthetic analogues, initial encounter; E87.6 Hypokalemia; G47.33 Obstructive sleep apnea (adult) (pediatric); J44.9 Chronic obstructive pulmonary disease, unspecified; F31.9 Bipolar disorder, unspecified; R09.02 Hypoxemia
CPT/HCPCS: 36415; 71046; 80048; 80076; 82948; 83605; 83735; 84484; 85025; 85027; 85380; 85610; 85730; 87040; 93005; 94640; 96361; 96365; 96367; 96374; 96375; 96376; 99284; 99285; A9270; C9803; G0378; J0456; J0696; J1650; J2405; J2920; J2930; J3480; J7030; U0003; U0005

== ENCOUNTER 2021-05-30 08:22 | Outpatient (CLI) | payer MEDICARE, SELFPAY ==
[2021-05-30 08:39] LABS: Basophils Absolute Auto 0.05 K/mm3 (0.00-0.10); Basophils Percent Auto 0.4 % (0.0-1.0); Eosinophils Absolute Auto 0.15 K/mm3 (0.02-0.50); Eosinophils Percent Auto 1.3 % (1.0-6.0); Hematocrit 46.5 % (35.0-49.0); Hemoglobin 15.1 g/dL (12.0-15.0); Immature Granulocyte Absolute 0.13 K/mm3 (0.00-0.00); Immature Granulocyte Percent A 1.1 % (0.0-0.0); Lymphocytes Absolute Auto 1.96 K/mm3 (1.10-4.50); Lymphocytes Percent Auto 16.7 % (18.0-42.0); Mean Corpuscular HGB Conc 32.5 g/dL (32.0-36.0); Mean Corpuscular Hemoglobin 29.5 pg (27.0-31.0); Mean Corpuscular Volume 90.8 fL (78.0-102.0); Mean Platelet Volume 10.7 fl (9.2-11.8); Monocytes Absolute Auto 0.92 K/mm3 (0.10-0.90); Monocytes Percent Auto 7.8 % (2.0-11.0); Neutrophils Absolute Auto 8.6 K/mm3 (1.7-7.2); Neutrophils Percent Auto 72.7 % (50.0-70.0); Platelet Count Result 253 K/mm3 (150-420); Red Blood Count 5.12 M/mm3 (4.20-5.40); Red Cell Distribution Width 12.9 % (11.6-14.4); White Blood Count 11.8 K/mm3 (4.8-10.8)
[2021-05-30 09:55] LABS: Alanine Aminotransferase 68 U/L (14-59); Albumin Level 3.5 g/dL (3.4-5.0); Alkaline Phosphatase 60 U/L (46-116); Anion Gap 10 mmol/L (8-16); Aspartate Amino Transferase 30 U/L (15-37); Bilirubin,Total 0.3 mg/dL (0.00-1.00); Blood Urea Nitrogen 4 mg/dL (7-18); Calcium 8.9 mg/dL (8.5-10.1); Carbon Dioxide 27 mmol/L (21-32); Chloride 103 mmol/L (98-108); Estimated Glomerular Filt Rate > 60; Glucose 147 mg/dL (70-99); Magnesium 2.2 mg/dL (1.8-2.4); Osmolality Calculated 289 mOsm/kg (285-295); Potassium 5.1 mmol/L (3.5-5.1); Sodium 140 mmol/L (136-145); Total Protein 7.1 g/dL (6.4-8.2)
== END 2021-05-30 08:23 | disposition home or self-care (01) ==
LOC: CHSLAB 08:25
PROVIDERS: PCP Internal Medicine; Visit Provider Internal Medicine
DX: J44.9 Chronic obstructive pulmonary disease, unspecified (principal); E87.6 Hypokalemia
CPT/HCPCS: 36415; 80053; 83735; 85025

== ENCOUNTER 2021-06-06 08:23 | Outpatient (CLI) | payer MEDICARE, SELFPAY ==
[2021-06-06 08:41] LABS: Basophils Absolute Auto 0.07 K/mm3 (0.00-0.10); Eosinophils Absolute Auto 0.38 K/mm3 (0.02-0.50); Eosinophils Percent Auto 5.5 % (1.0-6.0); Hematocrit 44.4 % (35.0-49.0); Hemoglobin 14.9 g/dL (12.0-15.0); Immature Granulocyte Absolute 0.03 K/mm3 (0.00-0.00); Immature Granulocyte Percent A 0.4 % (0.0-0.0); Lymphocytes Absolute Auto 1.46 K/mm3 (1.10-4.50); Mean Corpuscular HGB Conc 33.6 g/dL (32.0-36.0); Mean Corpuscular Hemoglobin 29.8 pg (27.0-31.0); Mean Corpuscular Volume 88.8 fL (78.0-102.0); Mean Platelet Volume 9.7 fl (9.2-11.8); Monocytes Absolute Auto 0.47 K/mm3 (0.10-0.90); Monocytes Percent Auto 6.8 % (2.0-11.0); Neutrophils Absolute Auto 4.6 K/mm3 (1.7-7.2); Neutrophils Percent Auto 65.3 % (50.0-70.0); Platelet Count Result 300 K/mm3 (150-420); Red Cell Distribution Width 12.5 % (11.6-14.4)
[2021-06-06 10:25] LABS: Alanine Aminotransferase 72 U/L (14-59); Albumin Level 3.7 g/dL (3.4-5.0); Alkaline Phosphatase 75 U/L (46-116); Anion Gap 7 mmol/L (8-16); Aspartate Amino Transferase 34 U/L (15-37); Bilirubin,Total 0.2 mg/dL (0.00-1.00); Blood Urea Nitrogen 4 mg/dL (7-18); Calcium 9.2 mg/dL (8.5-10.1); Carbon Dioxide 31 mmol/L (21-32); Chloride 104 mmol/L (98-108); Estimated Glomerular Filt Rate > 60; Glucose 99 mg/dL (70-99); Osmolality Calculated 290 mOsm/kg (285-295); Potassium 4.4 mmol/L (3.5-5.1); Sodium 142 mmol/L (136-145); Total Protein 7.4 g/dL (6.4-8.2)
== END 2021-06-06 08:24 | disposition home or self-care (01) ==
LOC: CHSLAB 08:34
PROVIDERS: PCP Internal Medicine; Visit Provider Internal Medicine
DX: J44.1 Chronic obstructive pulmonary disease with (acute) exacerbation (principal); E87.6 Hypokalemia
CPT/HCPCS: 36415; 80053; 85025

== ENCOUNTER 2021-07-28 18:09 | Observation (INO) | payer OTHER, SELFPAY ==
[2021-07-28] VITALS (8 sets, daily range): BP systolic 129–165; BP diastolic 75–80; PULSE 68–80; RESP 20–24; TEMP 36.5–36.7; O2SAT 87–99
--- NOTE | ~2021-07-28 | XR_ITS ---
XR chest 1V portable 07/28/2021 20:29 Indication: Dyspnea. COPD. Procedure: AP portable chest Comparison: Comparison to multiple prior studies sequentially, with oldest reviewed study dated 08/05. Findings: Right middle lobe consolidation. No edema, pleural effusion or pneumothorax. Impression: 1: Right middle lobe airspace disease, compatible with pneumonia. Reviewed, dictated and finalized at location A. Impression: 1: Right middle lobe airspace disease, compatible with pneumonia.
--- NOTE | 2021-07-28 18:14 | PC.NURSE ---
triage in waiting room patient pulse ox is 95%, HR 85, and normal respirations.
--- NOTE | 2021-07-28 19:42 | ECG_ITS ---
Measurements Intervals [place] Rate: 56 P: 50 WV: 149 QRS: 119 QRSD: 89 T: 59 QT: 411 QTc: 398 Interpretive Statements SINUS BRADYCARDIA RIGHT AXIS DEVIATION INCOMPLETE RIGHT BUNDLE BRANCH BLOCK BORDERLINE T WAVE ABNORMALITY- ANTERIOR LEADS BASELINE ARTIFACT- II, III, AVR, AVF, V1 BORDERLINE ECG Electronically Signed On 07-29-2021 15:48:10 CDT by Casimiro Fritz D.O.
[2021-07-28] MEDS: ALBUTEROL SULFATE (*SP) INHALER 4 PUFF INHALATION (19:53)
[2021-07-28] MEDS: SODIUM CHLORIDE 0.9% IV 500 ML 999 ML IV CONT (20:00)
[2021-07-28 20:07] LABS: Basophils Absolute Auto 0.06 K/mm3 (0.00-0.10); Basophils Percent Auto 0.4 % (0.0-1.0); Hematocrit 45.2 % (35.0-49.0); Hemoglobin 15.4 g/dL (12.0-15.0); Immature Granulocyte Absolute 0.34 K/mm3 (0.00-0.00); Immature Granulocyte Percent A 2.1 % (0.0-0.0); Lymphocytes Absolute Auto 2.74 K/mm3 (1.10-4.50); Lymphocytes Percent Auto 17.2 % (18.0-42.0); Mean Corpuscular HGB Conc 34.1 g/dL (32.0-36.0); Mean Corpuscular Hemoglobin 30.1 pg (27.0-31.0); Mean Corpuscular Volume 88.5 fL (78.0-102.0); Mean Platelet Volume 10.5 fl (9.2-11.8); Monocytes Absolute Auto 1.05 K/mm3 (0.10-0.90); Monocytes Percent Auto 6.6 % (2.0-11.0); Neutrophils Absolute Auto 11.8 K/mm3 (1.7-7.2); Neutrophils Percent Auto 73.7 % (50.0-70.0); Platelet Count Result 286 K/mm3 (150-420); Red Blood Count 5.11 M/mm3 (4.20-5.40); Red Cell Distribution Width 12.4 % (11.6-14.4); White Blood Count 15.9 K/mm3 (4.8-10.8)
[2021-07-28 20:19] LABS: D Dimer 0.43 mg/L (0.19-0.50)
[2021-07-28 20:28] LABS: Alanine Aminotransferase 46 U/L (14-59); Alkaline Phosphatase 52 U/L (46-116); Anion Gap 10 mmol/L (8-16); Aspartate Amino Transferase 20 U/L (15-37); Bilirubin,Total 0.2 mg/dL (0.00-1.00); Blood Urea Nitrogen 13 mg/dL (7-18); Calcium 9.1 mg/dL (8.5-10.1); Carbon Dioxide 31 mmol/L (21-32); Chloride 103 mmol/L (98-108); Estimated CRCL calculation 52 ml/min; Estimated Glomerular Filt Rate > 60; Glucose 100 mg/dL (70-99); NT Pro B Type Natriuretic Pept 246 pg/mL (0-125); Osmolality Calculated 298 mOsm/kg (285-295); Potassium 3.5 mmol/L (3.5-5.1); Sodium 144 mmol/L (136-145); Total Protein 7.6 g/dL (6.4-8.2); Troponin I < 4.0 ng/L (0.00-60.4)
[2021-07-28 20:43] LABS: Base Excess ABG 3.1 mmol/L (0-2); Device ROOM AIR; HCO3 ABG 27.3 mmol/L (23-29); Modified Allen's Test Pass; Oxygen Content ABG 19.7 %vol (16.0-22.0); Oxygen Saturation ABG 89.7 % (95-97); Oxyhemoglobin 86.7 % (94-100); PCO2 ABG 40.6 mmHg (35-45); PO2 ABG 55.4 mmHg (80-90); Site Drawn LEFT RADIAL; Total Hemoglobin 16.2 g/dL (12.0-18.0); pH ABG 7.45 (7.35-7.45)
[2021-07-28 20:57] LABS: SARS-CoV-2 RNA PCR Negative (Negative)
[2021-07-28] MEDS: IPRATROPIUM 0.5 MG/ALBUTEROL SULFATE 2.5 MG AMPUL.NEB 3 ML INHALATION (21:12)
[2021-07-28] MEDS: methylPREDNISolone SOD SUCC 40 MG VIAL 80 MG IV PUSH (21:12)
--- NOTE | 2021-07-28 21:24 | ED.SOB ---
HPI - SOB/Dyspnea General Chief Complaint: Shortness of Breath/Dyspnea Stated Complaint: low oxygen Time Seen by Provider: 07/28/21 20:00 Source: patient Mode of arrival: ambulatory Limitations: no limitations History of Present Illness HPI Narrative: 55-year-old woman with a history of COPD comes in today complaining of increasing shortness of breath, cough and chest congestion over last 4-5 days. she states her home oximeter has been reading in the 80s, especially when she is exerting herself (walking). She saw her primary care doctor 3 days ago who recommended her admission to the hospital however she refused and he prescribed antibiotics and steroids. Patient states that her symptoms are not getting any better and in fact feel worse today. She has had no fever, vomiting, chest pain, abdominal pain, sputum production, sore throat or sick exposures. She has had two doses of the COVID vaccine. MD elicited complaint: shortness of breath and cough Pertinent past history: COPD Onset (ago): day(s) (4-5) Context: allergen exposure Timing: constant and progressively worsening Severity: moderate Exacerbating factors: exertion Relieving factors: rest and medication Known history of: COPD Associated symptoms: cough and wheezing Treatment prior to arrival: bronchodilator Related Data Home oxygen amount: none Home Medications Medication Instructions Recorded Confirmed albuterol sulfate 2 inh INHALATION Q4-6H PRN 05/18/21 07/28/21 amlodipine 10 mg PO HS 05/18/21 07/28/21 montelukast [Singulair] 10 mg PO HS 05/18/21 07/28/21 pravastatin 10 mg PO HS 05/18/21 07/28/21 albuterol sulfate 2.5 mg CONTINUOUS NEBULIZATION 07/28/21 07/28/21 Q4-6H PRN budesonide 0.5 mg INHALATION BID 07/28/21 07/28/21 cefuroxime axetil 250 mg PO BID 07/28/21 07/28/21 lorazepam 0.5 mg PO HS 07/28/21 07/28/21 prednisone 20 mg PO DAILY 07/28/21 07/28/21 Allergies Allergy/AdvReac Type Severity Reaction Status Date / Time iodine Allergy Severe Anaphylaxis Verified 05/18/21 12:12 iohexol Allergy Severe Anaphylaxis Verified 05/18/21 12:12 [From contrast - CT, X-RAY] codeine AdvReac Severe Seizure Verified 05/18/21 12:12 hydrocodone AdvReac Severe Seizure Verified 05/18/21 12:12 Review of Systems Review of Systems: All systems reviewed & are unremarkable except as noted in HPI and below Constitutional: Constitutional: Denies chills and Denies fever(s) Eyes: Eyes: Denies change in vision and Denies photophobia ENT: Denies nasal congestion and Denies sore throat Cardiovascular: Cardiovascular: Denies chest pain and Denies radiating jaw, neck or arm pain Respiratory: Respiratory: Reports as per HPI, Reports chest congestion, Reports cough, Reports dyspnea and Reports wheezing Gastrointestinal: Gastrointestinal: Denies abdominal pain, Denies diarrhea, Denies nausea and Denies vomiting Musculoskeletal: Musculoskeletal: Denies back pain, Denies arthralgias and Denies joint swelling Integumentary/Breasts: Skin/Breast: Denies pruritus, Denies erythema and Denies rash Neurologic: Denies vertigo, Denies dizziness and Denies syncope Allergic/Immunologic: Allergic/Immunologic: Denies lip swelling, Denies throat swelling and Denies tongue swelling PMFSH Past Medical History Medical History Bipolar disorder Chronic obstructive pulmonary disease Hypertension Leg fracture, left Obstructive sleep apnea Mild--refuses CPAP uses oxygen at night Polycythemia secondary to smoking Surgical History Surgical History H/O section History of History of cryosurgery History of ovarian cystectomy Partial left cystectomy complicated by infected hematoma Family History Family History Father Acute myocardial infarction Mother Acute myocardial infarction Cerebrovascular accident
--- NOTE | 2021-07-28 21:43 | PC.NURSE ---
Pt resting, call placed to [facility] for bed for 23 hr obs admit.
--- NOTE | 2021-07-28 22:25 | ADMGEN ---
This patient, Donna Sharp, was admitted to 2nd Floor Room 209-1. Patient oriented to hospital policies and general routines including ID bracelet, bed and alarms, visiting hours, pain management, procedures, bathroom and other care routines, personal items, smoking policy, room service/diet, and visiting hours. Information on how to activate the Rapid Response Team has been discussed. Patient are encouraged to report perceived risks to care and to ask questions if they do not understand what they are told or what they should do. Patient alert and oriented. Respirations even and unlabored. Lungs diminished with crackles and wheezes throughout. O2 on @ 2 lpm/nc. Patient denies shortness of breath. Denies pain. No distress noted. Call light in reach.
[2021-07-28] MEDS: LORazepam (*CRX) 0.5 MG TABLET PO (22:36)
[2021-07-28] MEDS: MONTELUKAST SODIUM 10 MG TABLET PO (22:36)
[2021-07-28] MEDS: amLODIPine BESYLATE 5 MG TABLET 10 MG PO (22:36)
[2021-07-28] MEDS: OLANZapine 5 MG TABLET PO (22:37)
[2021-07-28] MEDS: PRAVASTATIN SODIUM 10 MG TABLET PO (22:50)
[2021-07-29] VITALS (10 sets, daily range): BP systolic 135–158; BP diastolic 69–85; PULSE 56–96; RESP 16–20; TEMP 36.4–36.6; O2SAT 96–99
[2021-07-29 05:05] LABS: Basophils Absolute Auto 0.04 K/mm3 (0.00-0.10); Basophils Percent Auto 0.4 % (0.0-1.0); Hematocrit 44.2 % (35.0-49.0); Hemoglobin 14.9 g/dL (12.0-15.0); Immature Granulocyte Percent A 1.8 % (0.0-0.0); Lymphocytes Absolute Auto 1.05 K/mm3 (1.10-4.50); Lymphocytes Percent Auto 9.4 % (18.0-42.0); Mean Corpuscular HGB Conc 33.7 g/dL (32.0-36.0); Mean Corpuscular Hemoglobin 29.9 pg (27.0-31.0); Mean Corpuscular Volume 88.6 fL (78.0-102.0); Mean Platelet Volume 10.2 fl (9.2-11.8); Monocytes Absolute Auto 0.07 K/mm3 (0.10-0.90); Monocytes Percent Auto 0.6 % (2.0-11.0); Neutrophils Absolute Auto 9.8 K/mm3 (1.7-7.2); Neutrophils Percent Auto 87.8 % (50.0-70.0); Platelet Count Result 248 K/mm3 (150-420); Red Blood Count 4.99 M/mm3 (4.20-5.40); Red Cell Distribution Width 12.4 % (11.6-14.4); White Blood Count 11.2 K/mm3 (4.8-10.8)
[2021-07-29] MEDS: methylPREDNISolone SOD SUCC 40 MG VIAL IV PUSH ×2 (05:25→13:15)
[2021-07-29 05:26] LABS: Alanine Aminotransferase 44 U/L (14-59); Albumin Level 3.6 g/dL (3.4-5.0); Alkaline Phosphatase 47 U/L (46-116); Anion Gap 10 mmol/L (8-16); Aspartate Amino Transferase 16 U/L (15-37); Bilirubin,Total 0.3 mg/dL (0.00-1.00); Blood Urea Nitrogen 12 mg/dL (7-18); Calcium 8.4 mg/dL (8.5-10.1); Carbon Dioxide 29 mmol/L (21-32); Chloride 103 mmol/L (98-108); Estimated CRCL calculation 60 ml/min; Estimated Glomerular Filt Rate > 60; Glucose 156 mg/dL (70-99); Osmolality Calculated 296 mOsm/kg (285-295); Sodium 142 mmol/L (136-145); Total Protein 6.9 g/dL (6.4-8.2)
[2021-07-29 05:27] LABS: Troponin I < 4.0 ng/L (0.00-60.4)
[2021-07-29] MEDS: BUDESONIDE RESPULE NEB 0.5 MG/2 ML AMP INHALATION (05:36)
[2021-07-29] MEDS: IPRATROPIUM 0.5 MG/ALBUTEROL SULFATE 2.5 MG AMPUL.NEB 3 ML INHALATION ×2 (05:36→12:24)
--- NOTE | 2021-07-29 12:30 | PM.SD2 ---
Same Day Admit/Disch: HPI History of Present Illness Chief complaint: CAP COPD EXACERBATION <STEPHANIA Arriola - Last Filed: 07/29/21 13:01> Narrative: Donna Sharp is a 55 year old female admitted for Observation for COPD exacerbation. Pt states she went to her PCP who wanted to admit her however she chose to try outpatient treatment. She states she was taking antibiotics and steroids her PCP had written for her however she states her SOB was getting worse with increased cough and congestion. She was also taking her nebulizers. This AM she states her breathing is improved though she still feels a little congested. She feels she is on the mend and would like to return home. I will continue with Levaquin for 5 days as her renal function is good as well as Prednisone taper and DuoNeb for a short course. Pt already has home oxygen. Pt states she has cut down from 2 PPD to 1/2 PPD smoker <STEPHANIA Arriola - Last Filed: 07/29/21 13:01> [facility] Past Medical History Medical History: Medical History (Updated 07/29/21 @ 12:41 by STEPHANIA Arriola) Bipolar disorder Chronic obstructive pulmonary disease Hypersomnolence Hypertension Leg fracture, left Obstructive sleep apnea Mild--refuses CPAP uses oxygen at night Polycythemia secondary to smoking Pulmonary nodule Tobacco abuse <STEPHANIA Arriola - Last Filed: 07/29/21 13:01> Surgical History Surgical History: Surgical History H/O section History of History of cryosurgery History of ovarian cystectomy Partial left cystectomy complicated by infected hematoma <STEPHANIA Arriola - Last Filed: 07/29/21 13:01> Family History Family History: Family History Father Acute myocardial infarction Mother Acute myocardial infarction Cerebrovascular accident <STEPHANIA Arriola - Last Filed: 07/29/21 13:01> Social History Social History: Social History Social History: She has smoked a pack per day since her mid 20s. She never drinks alcohol. She denies illicit substance use. She lives with her 15-year-old son. She is on disability due to her bipolar disorder. Primary care physician: Dr. Juilan Chandra Code status: Full code Smoking packs per day: 1 Smoking cigarettes per day: 20.0 Years smoked: 30 Smoking pack-years: 30.00 Smoking status: Current every day smoker Tobacco type: cigarettes Second hand tobacco smoke exposure: No Alcohol intake: former Substance use: never Substance use type: does not use Gender identity (if verbalized by the patient): Female Spiritual care concerns: No Agree to blood products: Yes <STEPHANIA Arriola - Last Filed: 07/29/21 13:01> Same Day Admit/Disch: Med Pre-admit Medications Home Medications: Home Medications Medication Instructions Recorded Confirmed Type olanzapine 5 mg PO HS #30 tablet 09/03/19 07/28/21 Rx albuterol sulfate 2 inh INHALATION Q4-6H PRN 05/18/21 07/28/21 History amlodipine 10 mg PO HS 05/18/21 07/28/21 History montelukast [Singulair] 10 mg PO HS 05/18/21 07/28/21 History pravastatin 10 mg PO HS 05/18/21 07/28/21 History albuterol sulfate 2.5 mg CONTINUOUS NEBULIZATION 07/28/21 07/28/21 History Q4-6H PRN budesonide 0.5 mg INHALATION BID 07/28/21 07/28/21 History lorazepam 0.5 mg PO HS 07/28/21 07/28/21 History prednisone 20 mg PO DAILY 07/28/21 07/28/21 History ipratropium-albuterol 3 ml INHALATION Q8H #9 amp 07/29/21 Rx levofloxacin 750 mg PO DAILY 5 Days #5 tablet 07/29/21 Rx prednisone See Rx Instructions .ROUTE 07/29/21 Rx .COMPLEX #48 tablet <STEPHANIA Arriola - Last Filed: 07/29/21 13:01> DS: Data Data Completed and Pending Labs on day of discharge: Labs from last 24 hours 07/29/21 07/29/21
--- NOTE | 2021-07-29 14:00 | PC.NURSE ---
Discharge instructions reviewed with patient, patient verbalizes understanding. Patient drove herself to hospital. Patient escorted from floor by SN.
--- NOTE | 2021-08-05 15:17 | PC.NURSE ---
Pt states she received and understood her discharge instructions. Pt also states I had nothing but excellent care and I appreciate all of the wonderful staff there .
== END 2021-07-29 13:50 | disposition home or self-care (01) ==
LOC: CHSED 21:38 → CHS2ND 21:46
PROVIDERS: Admitting Provider Emergency Medicine; Emergency Provider Emergency Medicine; PCP Internal Medicine; Visit Provider Emergency Medicine
DX: J44.1 Chronic obstructive pulmonary disease with (acute) exacerbation (principal); J44.0 Chronic obstructive pulmonary disease with (acute) lower respiratory infection; J18.9 Pneumonia, unspecified organism; I10 Essential (primary) hypertension; D75.1 Secondary polycythemia; G47.33 Obstructive sleep apnea (adult) (pediatric); F17.210 Nicotine dependence, cigarettes, uncomplicated; F31.9 Bipolar disorder, unspecified; Z20.822 Contact with and (suspected) exposure to COVID-19
CPT/HCPCS: 36415; 36600; 71045; 80053; 82805; 83880; 84484; 85025; 85380; 87040; 93005; 94640; 96365; 96367; 96374; 96375; 96376; 99285; A9270; C9803; G0378; J0456; J0696; J2920; J7040; U0003; U0005

== ENCOUNTER 2021-08-17 16:25 | Observation (INO) | payer OTHER, SELFPAY ==
[2021-08-17] VITALS (14 sets, daily range): BP systolic 123–161; BP diastolic 60–91; PULSE 82–125; RESP 18–32; TEMP 36.2–36.6; O2SAT 87–98; BMI 27.2
--- NOTE | ~2021-08-17 | XR_ITS ---
EXAMINATION: XR chest 2V DATE: 08/17/2021 17:39 INDICATION: Dyspnea. Hypoxia. TECHNIQUE: Frontal and lateral views of the chest were obtained. COMPARISON: Chest single view 07/28/2021 FINDINGS: The chest demonstrates clear lungs without pneumonia, pleural effusion, or pneumothorax. Th e heart size is normal. IMPRESSION: 1. No acute cardiopulmonary disease. Reviewed, dictated and finalized at location A. TARY LANDFILL SUPERVISOR
--- NOTE | 2021-08-17 16:42 | ED.SOB ---
HPI - SOB/Dyspnea General Chief Complaint: Shortness of Breath/Dyspnea Stated Complaint: Low oxygen level Time Seen by Provider: 08/17/21 16:43 Source: patient Mode of arrival: ambulatory Limitations: no limitations History of Present Illness HPI Narrative: 56-year-old woman with a history of COPD comes in today complaining of shortness of breath, fatigue and cough that is nonproductive. She states that she was here 2 weeks ago with similar symptoms and improved after albuterol nebs, prednisone, and an overnight stay. her son has had cold symptoms for the last week. She has had the influenza, COVID and pneumonia vaccines. She denies fever, sputum production, abdominal pain, nausea, vomiting, chest pain, and syncope. Her symptoms are worse with exertion. She took an albuterol nebulizer approximately 1 hour prior to arrival and it did not help. MD elicited complaint: shortness of breath and cough Pertinent past history: COPD and other ( DERICK) Onset (ago): day(s) (1) Timing: constant and progressively worsening Severity: severe Exacerbating factors: exertion Relieving factors: nothing Known history of: COPD Associated symptoms: cough and wheezing Treatment prior to arrival: bronchodilator and other ( inhaled steroids) Related Data Home oxygen amount: none Home Medications Medication Instructions Recorded Confirmed albuterol sulfate 2 inh INHALATION Q4-6H PRN 05/18/21 08/17/21 amlodipine 10 mg PO HS 05/18/21 08/17/21 montelukast [Singulair] 10 mg PO HS 05/18/21 08/17/21 pravastatin 10 mg PO HS 05/18/21 08/17/21 albuterol sulfate 2.5 mg CONTINUOUS NEBULIZATION 07/28/21 08/17/21 Q4-6H PRN lorazepam 0.5 mg PO HS 07/28/21 08/17/21 olanzapine [Zyprexa] 5 mg PO HS 08/17/21 08/17/21 Allergies Allergy/AdvReac Type Severity Reaction Status Date / Time iodine Allergy Severe Anaphylaxis Verified 05/18/21 12:12 iohexol Allergy Severe Anaphylaxis Verified 05/18/21 12:12 [From contrast - CT, X-RAY] codeine AdvReac Severe Seizure Verified 05/18/21 12:12 hydrocodone AdvReac Severe Seizure Verified 05/18/21 12:12 Review of Systems Review of Systems: All systems reviewed & are unremarkable except as noted in HPI and below Constitutional: Constitutional: Denies chills and Denies fever(s) Eyes: Eyes: Denies change in vision and Denies photophobia ENT: Denies nasal congestion and Reports sore throat Cardiovascular: Cardiovascular: Denies chest pain and Denies radiating jaw, neck or arm pain Respiratory: Respiratory: Reports cough, Reports dyspnea and Reports wheezing Gastrointestinal: Gastrointestinal: Denies abdominal pain, Denies nausea and Denies vomiting Musculoskeletal: Musculoskeletal: Denies arthralgias and Denies joint swelling Integumentary/Breasts: Skin/Breast: Denies pruritus, Denies erythema and Denies rash Neurologic: Denies vertigo, Denies dizziness, Denies syncope and Denies focal weakness Hematologic/Lymphatic: Hematologic/Lymphatic: Denies easy bleeding and Denies easy bruising Allergic/Immunologic: Allergic/Immunologic: Denies lip swelling and Denies throat swelling PMFSH Past Medical History Medical History Bipolar disorder Chronic obstructive pulmonary disease Hypersomnolence Hypertension Leg fracture, left Obstructive sleep apnea Mild--refuses CPAP uses oxygen at night Polycythemia secondary to smoking Pulmonary nodule Tobacco abuse Surgical History Surgical History H/O section History of History of cryosurgery History of ovarian cystectomy Partial left cystectomy complicated by infected hematoma Family History Family History Father Acute myocardial infarction Mother Acute myocardial infarction Cerebrovascular accident Social History Social History (Reviewed 08/17/21 @ 16:48 by Ángel Luo
[2021-08-17] MEDS: methylPREDNISolone SOD SUCC 125 MG VIAL IV PUSH (17:04)
[2021-08-17] MEDS: ALBUTEROL SULFATE (*SP) INHALER 4 PUFF INHALATION (17:04)
--- NOTE | 2021-08-17 17:07 | ECG_ITS ---
Measurements Intervals [place] Rate: 99 P: 79 UT: 169 QRS: 112 QRSD: 82 T: 56 QT: 334 QTc: 430 Interpretive Statements SINUS RHYTHM WITH MARKED SINUS ARRHYTHMIA RIGHT AXIS DEVIATION POSSIBLE LEFT ATRIAL ENLARGEMENT INCOMPLETE RIGHT BUNDLE BRANCH BLOCK BASELINE ARTIFACT- I, II, III, AVR, AVL, AVF, V3-V6 BORDERLINE ECG Electronically Signed On 08-18-2021 8:58:42 MEDICAL DOCTOR NUCLE[employer] MEDICINE by Casimiro Fritz D.O.
[2021-08-17 17:14] LABS: SARS-CoV-2 Ag Negative (Negative)
[2021-08-17 17:15] LABS: Base Excess ABG 2.5 mmol/L (0-2); HCO3 ABG 27.3 mmol/L (23-29); Oxygen Content ABG 19.6 %vol (16.0-22.0); Oxygen Saturation ABG 95.6 % (95-97); Oxyhemoglobin 92.1 % (94-100); PCO2 ABG 42.4 mmHg (35-45); PO2 ABG 76.3 mmHg (80-90); Total Hemoglobin 15.1 g/dL (12.0-18.0); pH ABG 7.43 (7.35-7.45)
[2021-08-17 17:17] LABS: Basophils Absolute Auto 0.03 K/mm3 (0.00-0.10); Basophils Percent Auto 0.2 % (0.0-1.0); Eosinophils Absolute Auto 0.25 K/mm3 (0.02-0.50); Eosinophils Percent Auto 1.9 % (1.0-6.0); Hematocrit 46.2 % (35.0-49.0); Hemoglobin 14.9 g/dL (12.0-15.0); Immature Granulocyte Absolute 0.07 K/mm3 (0.00-0.00); Immature Granulocyte Percent A 0.5 % (0.0-0.0); Lymphocytes Absolute Auto 1.41 K/mm3 (1.10-4.50); Lymphocytes Percent Auto 10.7 % (18.0-42.0); Mean Corpuscular HGB Conc 32.3 g/dL (32.0-36.0); Mean Corpuscular Hemoglobin 30.2 pg (27.0-31.0); Mean Corpuscular Volume 93.5 fL (78.0-102.0); Monocytes Absolute Auto 0.95 K/mm3 (0.10-0.90); Monocytes Percent Auto 7.2 % (2.0-11.0); Neutrophils Absolute Auto 10.5 K/mm3 (1.7-7.2); Neutrophils Percent Auto 79.5 % (50.0-70.0); Platelet Count Result 196 K/mm3 (150-420); Red Blood Count 4.94 M/mm3 (4.20-5.40); Red Cell Distribution Width 13.2 % (11.6-14.4); White Blood Count 13.2 K/mm3 (4.8-10.8)
[2021-08-17 17:19] LABS: Device NASAL CANNULA; Modified Allen's Test Pass; Site Drawn LEFT RADIAL
[2021-08-17 17:35] LABS: Lactic Acid Reflex 1.2 mmol/L (0.4-2.0)
[2021-08-17 17:44] LABS: Alanine Aminotransferase 83 U/L (14-59); Albumin Level 3.5 g/dL (3.4-5.0); Alkaline Phosphatase 58 U/L (46-116); Anion Gap 7 mmol/L (8-16); Aspartate Amino Transferase 19 U/L (15-37); Bilirubin,Total 0.4 mg/dL (0.00-1.00); Blood Urea Nitrogen 5 mg/dL (7-18); Calcium 9.6 mg/dL (8.5-10.1); Carbon Dioxide 32 mmol/L (21-32); Chloride 101 mmol/L (98-108); Estimated CRCL calculation 60 ml/min; Estimated Glomerular Filt Rate > 60; Glucose 119 mg/dL (70-99); NT Pro B Type Natriuretic Pept 87 pg/mL (0-125); Osmolality Calculated 288 mOsm/kg (285-295); Potassium 3.9 mmol/L (3.5-5.1); Sodium 140 mmol/L (136-145); Total Protein 7.3 g/dL (6.4-8.2); Troponin I 12.7 ng/L (0.00-60.4)
[2021-08-17] MEDS: IPRATROPIUM 0.5 MG/ALBUTEROL SULFATE 2.5 MG AMPUL.NEB 3 ML INHALATION (18:51)
[2021-08-17] MEDS: amLODIPine BESYLATE 5 MG TABLET 10 MG PO (20:45)
[2021-08-17] MEDS: LORazepam (*CRX) 0.5 MG TABLET PO (20:45)
[2021-08-17] MEDS: MONTELUKAST SODIUM 10 MG TABLET PO (20:45)
[2021-08-17] MEDS: OLANZapine 5 MG TABLET PO (20:46)
[2021-08-17] MEDS: PRAVASTATIN SODIUM 20 MG TABLET 10 MG PO (20:47)
--- NOTE | 2021-08-17 22:46 | PC.NURSE ---
pt appears to be sleeping, hob up, 02 is on via nc, no s/sx of distress or sob, call light in reach
[2021-08-18] VITALS (17 sets, daily range): BP systolic 107–152; BP diastolic 08–82; PULSE 90–107; RESP 18–22; TEMP 36–36.7; O2SAT 92–99
[2021-08-18] MEDS: IPRATROPIUM 0.5 MG/ALBUTEROL SULFATE 2.5 MG AMPUL.NEB 3 ML INHALATION ×4 (00:03→18:27)
[2021-08-18 00:15] LABS: Troponin I 11.1 ng/L (0.00-60.4)
[2021-08-18 05:08] LABS: Basophils Absolute Auto 0.01 K/mm3 (0.00-0.10); Basophils Percent Auto 0.1 % (0.0-1.0); Hemoglobin 14.4 g/dL (12.0-15.0); Immature Granulocyte Absolute 0.08 K/mm3 (0.00-0.00); Immature Granulocyte Percent A 0.9 % (0.0-0.0); Lymphocytes Absolute Auto 0.51 K/mm3 (1.10-4.50); Lymphocytes Percent Auto 5.7 % (18.0-42.0); Mean Corpuscular Hemoglobin 29.9 pg (27.0-31.0); Mean Corpuscular Volume 93.4 fL (78.0-102.0); Mean Platelet Volume 10.4 fl (9.2-11.8); Monocytes Absolute Auto 0.05 K/mm3 (0.10-0.90); Monocytes Percent Auto 0.6 % (2.0-11.0); Neutrophils Absolute Auto 8.3 K/mm3 (1.7-7.2); Neutrophils Percent Auto 92.7 % (50.0-70.0); Platelet Count Result 215 K/mm3 (150-420); Red Blood Count 4.82 M/mm3 (4.20-5.40); Red Cell Distribution Width 12.7 % (11.6-14.4)
[2021-08-18 05:28] LABS: Alanine Aminotransferase 76 U/L (14-59); Albumin Level 3.3 g/dL (3.4-5.0); Alkaline Phosphatase 55 U/L (46-116); Anion Gap 6 mmol/L (8-16); Aspartate Amino Transferase 14 U/L (15-37); Bilirubin,Total 0.3 mg/dL (0.00-1.00); Blood Urea Nitrogen 10 mg/dL (7-18); Calcium 9.8 mg/dL (8.5-10.1); Carbon Dioxide 32 mmol/L (21-32); Chloride 103 mmol/L (98-108); Estimated CRCL calculation 55 ml/min; Estimated Glomerular Filt Rate > 60; Glucose 179 mg/dL (70-99); Magnesium 2.4 mg/dL (1.8-2.4); Osmolality Calculated 295 mOsm/kg (285-295); Potassium 4.7 mmol/L (3.5-5.1); Sodium 141 mmol/L (136-145); Total Protein 7.3 g/dL (6.4-8.2); Troponin I 8.5 ng/L (0.00-60.4)
--- NOTE | 2021-08-18 05:44 | PM.IMHP ---
H&P: HPI History of Present Illness Date/Time: 08/18/21 05:44 Donna Sharp is a 56 year old female who is being admitted under Observation for COPD Exacerbation. Pt states that she was in [facility] yesterday and noticed her SpO2 monitor was reading in the 70s. She states that she did not have her portable oxygen with her. She went home and used her oxygen condenser but was only able to get her O2 up to 90%. Upon arrival at the ER her SpO2 was in the 70s, as reported by ER PCT, and she still did not have her portable oxygen with her. This AM she states she is breathing better. Pt states she smokes only 1.5 to 2 PPD. She has requested Nicotine Patch. Pt denies CP. Admits to non-productive cough. No abdominal pains, fevers, chills, ill person exposure. Chief Complaint: COPD Exacerbation Review of Systems Review of Systems: All systems reviewed & are unremarkable except as noted in HPI and below PMFSH Past Medical History Medical History Bipolar disorder Chronic obstructive pulmonary disease Hypersomnolence Hypertension Leg fracture, left Obstructive sleep apnea Mild--refuses CPAP uses oxygen at night Polycythemia secondary to smoking Pulmonary nodule Tobacco abuse Surgical History Surgical History H/O section History of History of cryosurgery History of ovarian cystectomy Partial left cystectomy complicated by infected hematoma Family History Family History Father Acute myocardial infarction Mother Acute myocardial infarction Cerebrovascular accident Social History Social History (Updated 08/18/21 @ 07:39 by STEPHANIA Arriola) Social History: She has smoked a pack per day since her mid 20s. She never drinks alcohol. She denies illicit substance use. She lives with her 15-year-old son. She is on disability due to her bipolar disorder. Primary care physician: Dr. Julian Chandra Code status: Full code Smoking packs per day: 2 Smoking cigarettes per day: 40.0 Years smoked: 30 Smoking pack-years: 60.00 Smoking status: Current every day smoker Tobacco type: cigarettes Second hand tobacco smoke exposure: Yes Alcohol intake: never Substance use: never Substance use type: does not use Gender identity (if verbalized by the patient): Female Spiritual care concerns: No Agree to blood products: Yes Meds Home Medications and Allergies Home Medications Medication Instructions Recorded Confirmed Type albuterol sulfate 2 inh INHALATION Q4-6H PRN 05/18/21 08/17/21 History amlodipine 10 mg PO HS 05/18/21 08/17/21 History montelukast [Singulair] 10 mg PO HS 05/18/21 08/17/21 History pravastatin 10 mg PO HS 05/18/21 08/17/21 History albuterol sulfate 2.5 mg CONTINUOUS NEBULIZATION 07/28/21 08/17/21 History Q4-6H PRN lorazepam 0.5 mg PO HS 07/28/21 08/17/21 History olanzapine [Zyprexa] 5 mg PO HS 08/17/21 08/17/21 History Allergies Allergy/AdvReac Type Severity Reaction Status Date / Time iodine Allergy Severe Anaphylaxis Verified 05/18/21 12:12 iohexol Allergy Severe Anaphylaxis Verified 05/18/21 12:12 [From contrast - CT, X-RAY] codeine AdvReac Severe Seizure Verified 05/18/21 12:12 hydrocodone AdvReac Severe Seizure Verified 05/18/21 12:12 Vital Signs Vital Signs - 24 hr 08/17/21 16:40 08/17/21 16:46 08/17/21 16:49 Temperature 97.3 F L Pulse Rate 116 H 125 H 123 H Respiratory Rate 32 H 28 H 28 H Blood Pressure 161/85 H Pulse Oximetry 88 L 93 93 08/17/21 17:00 08/17/21 17:05 08/17/21 18:10 Temperature Pulse Rate 114 H 82 114 H Respiratory Rate 28 H 32 H 28 H Blood Pressure 129/68 138/84 Pulse Oximetry 95 92 88 L 08/17/21 18:30 08/17/21 18:50 08/17/21 18:53 Temperature Pulse Rate 114 H 109 H 124 H Respiratory Rate 20 28 H Blood Pressure 144/
[2021-08-18] MEDS: BENZONATATE 100 MG CAPSULE 200 MG PO ×3 (05:52→20:43)
[2021-08-18] MEDS: methylPREDNISolone SOD SUCC 40 MG VIAL IV PUSH ×3 (05:52→21:00)
[2021-08-18] MEDS: ENOXAPARIN 30 MG/0.3 ML SYRINGE SUB-Q (09:09)
[2021-08-18] MEDS: NICOTINE (*PBKC) 21 MG PATCH 1 PATCH TRANSDERM (09:10)
[2021-08-18] MEDS: MONTELUKAST SODIUM 10 MG TABLET PO (20:43)
[2021-08-18] MEDS: amLODIPine BESYLATE 5 MG TABLET 10 MG PO (20:43)
[2021-08-18] MEDS: OLANZapine 5 MG TABLET PO (20:43)
[2021-08-18] MEDS: LORazepam (*CRX) 0.5 MG TABLET PO (20:44)
[2021-08-18] MEDS: PRAVASTATIN SODIUM 20 MG TABLET 10 MG PO (20:44)
--- NOTE | 2021-08-18 21:26 | PC.NURSE ---
patient sitting upright in bed. Alert and oriented x3. Cough appears to be decreased from previous evening. Tessalon pearls given. library monitor has difficulty adhering to patient.
[2021-08-19] VITALS (10 sets, daily range): BP systolic 115–155; BP diastolic 70–86; PULSE 64–99; RESP 16–20; TEMP 35.9–36.8; O2SAT 92–99
[2021-08-19] MEDS: IPRATROPIUM 0.5 MG/ALBUTEROL SULFATE 2.5 MG AMPUL.NEB 3 ML INHALATION ×2 (00:21→05:32)
--- NOTE | 2021-08-19 04:24 | PC.NURSE ---
Patient removed oxygen to use the restroom. Patient walked to the bathroom and back without any SOB or any distress. Sats after patient returned to bed, 93%. Patient wants to remain on room air at this time. --Cyndee MCKEON
[2021-08-19 05:28] LABS: Hematocrit 42.5 % (35.0-49.0); Hemoglobin 13.9 g/dL (12.0-15.0); Mean Corpuscular HGB Conc 32.7 g/dL (32.0-36.0); Mean Corpuscular Hemoglobin 30.3 pg (27.0-31.0); Mean Corpuscular Volume 92.8 fL (78.0-102.0); Mean Platelet Volume 10.5 fl (9.2-11.8); Platelet Count Result 249 K/mm3 (150-420); Red Blood Count 4.58 M/mm3 (4.20-5.40); Red Cell Distribution Width 12.7 % (11.6-14.4); White Blood Count 16.6 K/mm3 (4.8-10.8)
[2021-08-19] MEDS: methylPREDNISolone SOD SUCC 40 MG VIAL IV PUSH (05:38)
[2021-08-19 05:43] LABS: Anion Gap 10 mmol/L (8-16); Blood Urea Nitrogen 14 mg/dL (7-18); Calcium 9.7 mg/dL (8.5-10.1); Carbon Dioxide 28 mmol/L (21-32); Chloride 100 mmol/L (98-108); Estimated CRCL calculation 52 ml/min; Estimated Glomerular Filt Rate > 60; Glucose 199 mg/dL (70-99); Osmolality Calculated 292 mOsm/kg (285-295); Potassium 4.2 mmol/L (3.5-5.1); Sodium 138 mmol/L (136-145)
[2021-08-19] MEDS: NICOTINE (*PBKC) 21 MG PATCH 1 PATCH TRANSDERM (08:33)
[2021-08-19] MEDS: ENOXAPARIN 30 MG/0.3 ML SYRINGE SUB-Q (08:34)
[2021-08-19] MEDS: BENZONATATE 100 MG CAPSULE 200 MG PO (08:34)
--- NOTE | 2021-08-19 08:39 | P.DS_ITS ---
DS: Admitting Diagnosis Discharge Date 08/19/2021 <Annalise EstevezBINH SalmeronLilianaDarrin - Last Filed: 08/20/21 10:14> Admitting Diagnosis COPD exacerbation <Annalise EstevezETTA Salmeron - Last Filed: 08/20/21 10:14> DS: Discharge Diagnosis Discharge Diagnosis (1) Respiratory failure with hypoxia: Qualifiers: Chronicity: acute Qualified Code(s): J96.01 - Acute respiratory failure with hypoxia <ETTA Clifton - Last Filed: 08/20/21 10:14> Code(s): J96.91 - Respiratory failure, unspecified with hypoxia <ETTA Ralph - Last Filed: 08/20/21 10:14> Status: Acute <Annalise Vicente ETTA Vigil - Last Filed: 08/20/21 10:14> Assessment and Plan: ABG with pO2 of 76.3, Supplemental O2 at 2 L NC, Pt states breathing improved, SpO2 94%, wheezing and rhonchi throughout, will treat COPD Exacerbation * Secondary to COPD extubation * Improved sats 94% on room air <Annalise EstevezBINH SalmeronLilianaDarrin - Last Filed: 08/20/21 10:14> (2) COPD exacerbation: Code(s): J44.1 - Chronic obstructive pulmonary disease with (acute) exacerbation <Annalise EstevezBINH SalmeronLilianaDarrin - Last Filed: 08/20/21 10:14> Status: Acute <BINH CliftonLilianaDarrin - Last Filed: 08/20/21 10:14> Assessment and Plan: Supplemental O2, Telemetry, monitoring SpO2, DuoNeb, Solu-Medrol, Azithromycin, Nicotine patch, education on use of her Portable Oxygen, Inspiratory and Expiratory wheezing throughout, Rhonchi throughout. added Incentive Spirometer and Flutter Valve * Patient was discharged with prednisone, Symbicort, azithromycin WBCs * 16.6 secondary to steroid use <ETTA Clifton - Last Filed: 08/20/21 10:14> (3) Bipolar disorder: Code(s): F31.9 - Bipolar disorder, unspecified <ETTA Clifton - Last Filed: 08/20/21 10:14> Status: Acute <ETTA Clifton - Last Filed: 08/20/21 10:14> Assessment and Plan: Continue Zyprexa and Ativan <ETTA Clifton - Last Filed: 08/20/21 10:14> (4) Hypertension: Code(s): I10 - Essential (primary) hypertension <ETTA Clifton - Last Filed: 08/20/21 10:14> Status: Acute <ETTA Clifton - Last Filed: 08/20/21 10:14> Assessment and Plan: * Continue amlodipine follow-up with primary care physician <ETTA Clifton - Last Filed: 08/20/21 10:14> (5) HLD (hyperlipidemia): Code(s): E78.5 - Hyperlipidemia, unspecified <ETTA Clifton - Last Filed: 08/20/21 10:14> Status: Acute <ETTA Clifton - Last Filed: 08/20/21 10:14> Assessment and Plan: * Continue statins <ETTA Clifton - Last Filed: 08/20/21 10:14> DS: Summary Hospital Course Reason for hospitalization: COPD Exacerbation <ETTA Clifton - Last Filed: 08/20/21 10:14> Hospital Course: oDnna Sharp is a 56 year old female who was admitted under Observation for COPD Exacerbation. Previous to admission patient was dining with her pa rents and noticed her sats were in the 70s. She did not have her portable oxygen with her she notes that she is scared to carry the large oxygen tank with her because she is scared will fall. She went home and used her oxygen condenser but was only able to get her O2 up to 90%. Upon arrival at the ER her SpO2 was in the 70s on room air this AM she states she is breathing better. This day of discharge patient's condition has improved she was discharged with antibiotics azithromycin 500 mg daily tapered off of prednisone 20 mg 3 days and given Symbicort with Tessalon Perles for cough
--- NOTE | 2021-08-19 08:39 | PM.DS ---
DS: Admitting Diagnosis Discharge Date 08/19/2021 <Annalise VigilETTA - Last Filed: 08/20/21 10:14> Admitting Diagnosis COPD exacerbation <Annalise VigilETTA - Last Filed: 08/20/21 10:14> DS: Discharge Diagnosis Discharge Diagnosis (1) Respiratory failure with hypoxia: Qualifiers: Chronicity: acute Qualified Code(s): J96.01 - Acute respiratory failure with hypoxia <Annalise VigilETTA - Last Filed: 08/20/21 10:14> Code(s): J96.91 - Respiratory failure, unspecified with hypoxia <Annalise VigilETTA - Last Filed: 08/20/21 10:14> Status: Acute <Annalise Vigil REHABILITATION TEAM LEAD-C - Last Filed: 08/20/21 10:14> Assessment and Plan: ABG with pO2 of 76.3, Supplemental O2 at 2 L NC, Pt states breathing improved, SpO2 94%, wheezing and rhonchi throughout, will treat COPD Exacerbation Secondary to COPD extubation Improved sats 94% on room air <Annalise VigilETTA - Last Filed: 08/20/21 10:14> (2) COPD exacerbation: Code(s): J44.1 - Chronic obstructive pulmonary disease with (acute) exacerbation <Annalise VigilETTA - Last Filed: 08/20/21 10:14> Status: Acute <Annalise VigilETTA - Last Filed: 08/20/21 10:14> Assessment and Plan: Supplemental O2, Telemetry, monitoring SpO2, DuoNeb, Solu-Medrol, Azithromycin, Nicotine patch, education on use of her Portable Oxygen, Inspiratory and Expiratory wheezing throughout, Rhonchi throughout. added Incentive Spirometer and Flutter Valve Patient was discharged with prednisone, Symbicort, azithromycin WBCs 16.6 secondary to steroid use <Jeromedwight ZenaidaETTA Salmeron - Last Filed: 08/20/21 10:14> (3) Bipolar disorder: Code(s): F31.9 - Bipolar disorder, unspecified <Annalise ZenaidaETTA Salmeron - Last Filed: 08/20/21 10:14> Status: Acute <ETTA lCifton - Last Filed: 08/20/21 10:14> Assessment and Plan: Continue Zyprexa and Ativan <ETTA Clifton - Last Filed: 08/20/21 10:14> (4) Hypertension: Code(s): I10 - Essential (primary) hypertension <Annalise Vigil ETTA - Last Filed: 08/20/21 10:14> Status: Acute <ETTA Clifton - Last Filed: 08/20/21 10:14> Assessment and Plan: Continue amlodipine follow-up with primary care physician <Annalise BINH BrookeLilianaDarrin - Last Filed: 08/20/21 10:14> (5) HLD (hyperlipidemia): Code(s): E78.5 - Hyperlipidemia, unspecified <ETTA Clifton - Last Filed: 08/20/21 10:14> Status: Acute <Annalise Vigil ETTA - Last Filed: 08/20/21 10:14> Assessment and Plan: Continue statins <ETTA Clifton - Last Filed: 08/20/21 10:14> DS: Summary Hospital Course Reason for hospitalization: COPD Exacerbation <Annalise Vigil ETTA Ford Last Filed: 08/20/21 10:14> Hospital Course: Donna Sharp is a 56 year old female who was admitted under Observation for COPD Exacerbation. Previous to admission patient was dining with her parents and noticed her sats were in the 70s. She did not have her portable oxygen with her she notes that she is scared to carry the large oxygen tank with her because she is scared will fall. She went home and used her oxygen condenser but was only able to get her O2 up to 90%. Upon arrival at the ER her SpO2 was in the 70s on room air this AM she states she is breathing better. This day of discharge patient's condition has improved she was discharged with antibiotics azithromycin 500 mg daily tapered off of prednisone 20 mg 3 days and given Symbicort with Tessalon Perles for cough. Patient will follow up with her primary care physician Observation Time spent 60 minutes <BINH CliftonLilianaDarrin - Last Filed: 08/20/21 10:14> Time Spent with Patient Time attestation: Total time spent providing and/or coordinating discharge services: <BINH Clifton-Darrin - Last Filed: 08/20/21 10
--- NOTE | 2021-08-20 14:26 | PC.NURSE ---
The patient states she received and understood her discharge instructions. Pt also states all the nurses were wonderful and the food was great this time .
== END 2021-08-19 12:40 | disposition home or self-care (01) ==
LOC: CHSED 18:01 → CHS2ND 19:03
PROVIDERS: Nurse Practitioner Family; Admitting Provider Emergency Medicine; Emergency Provider Emergency Medicine; PCP Internal Medicine; Visit Provider Emergency Medicine
DX: J44.1 Chronic obstructive pulmonary disease with (acute) exacerbation (principal); J96.01 Acute respiratory failure with hypoxia; I10 Essential (primary) hypertension; D75.1 Secondary polycythemia; R91.1 Solitary pulmonary nodule; G47.10 Hypersomnia, unspecified; G47.33 Obstructive sleep apnea (adult) (pediatric); F31.9 Bipolar disorder, unspecified; F17.210 Nicotine dependence, cigarettes, uncomplicated; Z20.822 Contact with and (suspected) exposure to COVID-19
CPT/HCPCS: 36415; 36600; 71046; 80048; 80053; 82805; 83605; 83735; 83880; 84484; 85025; 85027; 87040; 87426; 93005; 94640; 94668; 96365; 96366; 96372; 96375; 96376; 99285; A9270; C9803; G0378; J0456; J1650; J2920; J2930

== ENCOUNTER 2021-09-19 09:41 | Outpatient (CLI) | payer OTHER, SELFPAY | END 2021-09-19 09:42 | disposition home or self-care (01) | LOC: CHSCARD 09:42 | PROVIDERS: PCP Internal Medicine; Visit Provider Internal Medicine | DX: J44.9 Chronic obstructive pulmonary disease, unspecified (principal) | CPT/HCPCS: 94060; 94726; 94729 ==

== ENCOUNTER 2021-11-24 10:23 | Outpatient (CLI) | payer OTHER, SELFPAY ==
--- NOTE | ~2021-11-24 | XR_ITS ---
EXAMINATION: XR abdomen obstructive series DATE: 11/24/2021 10:54 INDICATION: Low back pain TECHNIQUE: Upright and supine views of the abdomen were obtained. COMPARISON: 10/29/2009 FINDINGS: There is no free intraperitoneal gas or evidence of bowel obstruction. A phlebolith is note d in the left pelvis. The bowel gas pattern is normal. IMPRESSION: 1. Nonobstructive bowel gas pattern. Reviewed, dictated and finalized at location F. TRICAL POWER ENGINEER
[2021-11-24 10:37] LABS: Basophils Absolute Auto 0.05 K/mm3 (0.00-0.10); Basophils Percent Auto 0.5 % (0.0-1.0); Eosinophils Absolute Auto 0.21 K/mm3 (0.02-0.50); Eosinophils Percent Auto 2.3 % (1.0-6.0); Hematocrit 47.5 % (35.0-49.0); Hemoglobin 16.4 g/dL (12.0-15.0); Immature Granulocyte Absolute 0.03 K/mm3 (0.00-0.00); Immature Granulocyte Percent A 0.3 % (0.0-0.0); Lymphocytes Absolute Auto 2.22 K/mm3 (1.10-4.50); Lymphocytes Percent Auto 23.8 % (18.0-42.0); Mean Corpuscular HGB Conc 34.5 g/dL (32.0-36.0); Mean Corpuscular Hemoglobin 29.1 pg (27.0-31.0); Mean Corpuscular Volume 84.2 fL (78.0-102.0); Mean Platelet Volume 10.9 fl (9.2-11.8); Monocytes Absolute Auto 0.68 K/mm3 (0.10-0.90); Monocytes Percent Auto 7.3 % (2.0-11.0); Neutrophils Absolute Auto 6.1 K/mm3 (1.7-7.2); Neutrophils Percent Auto 65.8 % (50.0-70.0); Platelet Count Result 244 K/mm3 (150-420); Red Blood Count 5.64 M/mm3 (4.20-5.40); Red Cell Distribution Width 11.7 % (11.6-14.4); White Blood Count 9.3 K/mm3 (4.8-10.8)
[2021-11-24 11:14] LABS: Alanine Aminotransferase 41 U/L (14-59); Alkaline Phosphatase 58 U/L (46-116); Amylase 74 U/L (25-115); Anion Gap 9 mmol/L (8-16); Aspartate Amino Transferase 21 U/L (15-37); Bilirubin,Total 0.3 mg/dL (0.00-1.00); Blood Urea Nitrogen 5 mg/dL (7-18); Calcium 9.4 mg/dL (8.5-10.1); Carbon Dioxide 30 mmol/L (21-32); Chloride 101 mmol/L (98-108); Estimated Glomerular Filt Rate > 60; Glucose 93 mg/dL (70-99); Lipase 137 U/L (73-393); Osmolality Calculated 287 mOsm/kg (285-295); Potassium 3.6 mmol/L (3.5-5.1); Sodium 140 mmol/L (136-145); Total Protein 7.3 g/dL (6.4-8.2)
== END 2021-11-24 10:24 | disposition home or self-care (01) ==
LOC: CHSLAB 10:25
PROVIDERS: PCP Internal Medicine; Visit Provider Nurse Practitioner Family
DX: M54.50 Low back pain, unspecified (principal); R10.9 Unspecified abdominal pain
CPT/HCPCS: 36415; 74019; 80053; 82150; 83690; 85025

== ENCOUNTER 2022-11-02 11:28 | Emergency (ER) | payer OTHER, SELFPAY ==
--- NOTE | ~2022-11-02 | XR_ITS ---
EXAMINATION: XR pelvis 1-2V INDICATION: Generalized pelvic pain TECHNIQUE: AP view of the pelvis is obtained. COMPARISON: 04/11/2019 FINDINGS: Bone alignment is normal. There is no fracture. Phleboliths are noted in the left pelvis. IMPRESSION: 1. No acute osseous abnormality. Reviewed, dictated and finalized at location B. RAMMER ANALYST
--- NOTE | ~2022-11-02 | CT_ITS ---
EXAMINATION: CT cervical spine wo con DATE: 11/02/2022 12:09 INDICATION: Head injury. TECHNIQUE: Computed tomography (CT) of the cervical spine was performed without intravenous contrast. Automated exposure control and iterative reconstruction technique were employed. The dose-length pro duct was 185.19 mGy-cm. COMPARISON: CT cervical spine 04/11/2019 FINDINGS: There is 4 degrees dextrocurvature of cervical spine. Vertebral body heights are normal. Th ere is mildly decreased disc height at C5-C6. The following disc levels are specifically discussed: C2-C3: There is no uncovertebral joint osteoarthritis. There is no facet joint osteoarthritis. There is no neural foraminal stenosis. There is no central canal stenosis. C3-C4: There is no uncovertebral joint osteoarthritis. There is no facet joint osteoarthritis. There is no neural foraminal stenosis. There is no central canal stenosis. C4-C5: There is no uncovertebral joint osteoarthritis. There is no facet joint osteoarthritis. There is no neural foraminal stenosis. There is no central canal stenosis. C5-C6: There is mild bilateral uncovertebral joint osteoarthritis. There is no facet joint osteoarthr itis. There is no neural foraminal stenosis. There is no central canal stenosis. C6-C7: There is no uncovertebral joint osteoarthritis. There is moderate left facet joint osteoarthri tis. There is mild left neural foraminal stenosis. There is no central canal stenosis. C7-T1: There is no uncovertebral joint osteoarthritis. There is mild bilateral facet joint osteoarthr itis. There is no neural foraminal stenosis. There is no central canal stenosis. IMPRESSION: 1. No fracture. 2. Mild cervical spondylosis. Reviewed, dictated and finalized at location A. ER COVERER HELPER
--- NOTE | ~2022-11-02 | CT_ITS ---
EXAMINATION: CT brain wo con INDICATION: Head injury COMPARISON: 02/12/2016 TECHNIQUE: Standard unenhanced head CT. The dose-length product (DLP) was 529.67 mGy-cm. The mA was a djusted according to patient size. Iterative reconstruction technique was employed. FINDINGS: There is no intracranial hemorrhage, acute infarction, or abnormal mass lesion. The ventric les are normal. There is no abnormal mass effect or midline shift. The orellana-white matter differentiat ion is normal. The basal cisterns are patent. The orbits are normal. The paranasal sinuses, mastoids and calvarium are normal. IMPRESSION: 1. No acute intracranial abnormality. Reviewed, dictated and finalized at location B. EXTINGUISHER TESTER
--- NOTE | ~2022-11-02 | XR_ITS ---
EXAMINATION: XR hand LT min 3V INDICATION: Left hand pain TECHNIQUE: Three views of the left hand are obtained. COMPARISON: None available FINDINGS: Bone alignment is normal. There is no fracture. There is mild soft tissue swelling of the h and medial to the fifth metacarpal. 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 IMPRESSION: 1. Soft tissue swelling without acute osseous abnormality. Reviewed, dictated and finalized at location B. UET BARTENDER
[2022-11-02 11:32] VITALS: BP 156/79; PULSE 99; RESP 16; TEMP 36.5; O2SAT 98
--- NOTE | 2022-11-02 11:42 | ED.FALL ---
HPI - Fall General Chief Complaint: Fall Stated Complaint: fall Time Seen by Provider: 11/02/22 11:42 Source: patient Mode of arrival: ambulatory Limitations: no limitations History of Present Illness HPI Narrative: 7-year-old female with a history of hypertension, dyslipidemia bipolar COPD, DERICK, polycythemia backwards at home 2 days ago. She fell on head and presents to the ER with -- headache. Occiput feels sore. -- Neck pain -- bruising over the left hypothenar eminence with left hand pain -- right medial thigh hematoma measuring 5 cm above the popliteal fossa no loss of consciousness. No ENT bleeding. MD complaint: fall Onset (ago): day(s) ( Two days ago) Fall from: standing Fall witnessed: no Place fall occurred: home Loss of consciousness: none Prolonged down time: no Symptoms prior to fall: none Context: tripped/slipped Location of injury: head Associated symptoms (after fall): headache and neck pain Related Data Home Medications Medication Instructions Recorded Confirmed amlodipine 10 mg tablet 10 mg PO HS 05/18/21 11/02/22 montelukast 10 mg tablet 10 mg PO HS 05/18/21 11/02/22 (Singulair) pravastatin 10 mg tablet 10 mg PO HS 05/18/21 11/02/22 lorazepam 0.5 mg tablet 0.5 mg PO HS 07/28/21 11/02/22 olanzapine 5 mg tablet (Zyprexa) 5 mg PO HS 08/17/21 11/02/22 Allergies Allergy/AdvReac Type Severity Reaction Status Date / Time iodine Allergy Severe Anaphylaxis Verified 11/02/22 11:37 iohexol Allergy Severe Anaphylaxis Verified 11/02/22 11:37 [From contrast - CT, X-RAY] codeine AdvReac Severe Seizure Verified 11/02/22 11:37 hydrocodone AdvReac Severe Seizure Verified 11/02/22 11:37 Review of Systems Review of Systems: All systems reviewed & are unremarkable except as noted in HPI and below Constitutional: Constitutional: Reports as per HPI and Reports no additional constitutional complaints Eyes: Eyes: Reports as per HPI and Reports no additional eye complaints ENT: Reports system reviewed and no additional complaints, except as documented Cardiovascular: Cardiovascular: Reports as per HPI and Reports no additional cardiovascular complaints Respiratory: Respiratory: Reports as per HPI, Reports no additional respiratory complaints and Reports cough Gastrointestinal: Gastrointestinal: Reports as per HPI and Reports no additional gastrointestinal complaints Genitourinary: Genitourinary: Reports no additional female genitourinary complaints and Reports as per HPI Musculoskeletal: Musculoskeletal: Reports no additional musculoskeletal complaints and Reports as per HPI Integumentary/Breasts: Skin/Breast: Reports system reviewed and no additional complaints, except as docu and Reports as per HPI Comments: bruising over the left hand and right lower thigh Neurologic: Reports system reviewed and no additional complaints, except as documented and Reports as per HPI Psychiatric: Psychiatric: Reports no additional psychiatric complaints and Reports as per HPI Endocrine: Endocrine: Reports no additional endocrine complaints and Reports as per HPI Hematologic/Lymphatic: Hematologic/Lymphatic: Reports no additional hematologic/lymphatic complaints and Reports as per HPI Allergic/Immunologic: Allergic/Immunologic: Reports no additional allergic/immunologic complaints and Reports as per HPI [facility] Past Medical History Medical History Bipolar disorder Chronic obstructive pulmonary disease Hypersomnolence Hypertension Leg fracture, left Obstructive sleep apnea Mild--refuses CPAP uses oxygen at night Polycythemia secondary to smoking Pulmonary nodule Tobacco abuse Surgical History Surgical History H/O section History of History of cryosurgery History of ovarian cystectomy Partial left cystectomy complicated by infected hematoma Family History Family History
[2022-11-02 12:50] VITALS: BP 130/76; PULSE 62; RESP 16; TEMP 36.8; O2SAT 98
== END 2022-11-02 12:51 | disposition home or self-care (01) ==
PROVIDERS: Emergency Provider Internal Medicine Critical Care Medicine; PCP Internal Medicine
DX: S70.12XA Contusion of left thigh, initial encounter (principal); S60.222A Contusion of left hand, initial encounter; E78.5 Hyperlipidemia, unspecified; I10 Essential (primary) hypertension; J44.9 Chronic obstructive pulmonary disease, unspecified; F17.210 Nicotine dependence, cigarettes, uncomplicated; W01.0XXA Fall on same level from slipping, tripping and stumbling without subsequent striking against object, initial encounter
CPT/HCPCS: 70450; 72125; 72170; 73130; 99284

== ENCOUNTER 2023-02-08 11:22 | Emergency (ER) | payer OTHER, SELFPAY ==
--- NOTE | ~2023-02-08 | XR_ITS ---
EXAMINATION: XR chest 2V 02/08/2023 12:15 INDICATION: Congestion PROCEDURE: 2 view chest COMPARISON: Comparison to multiple prior studies sequentially, with oldest reviewed study dated 05/17. FINDINGS: The lungs are clear. The cardiomediastinal silhouette is within normal limits. There are no pleural effusions. There is no pneumothorax suspected. IMPRESSION: 1: NO ACUTE CARDIOPULMONARY DISEASE. Reviewed, dictated and finalized at location B.
[2023-02-08 11:23] VITALS: BP 129/77; PULSE 87; RESP 18; TEMP 36.8; O2SAT 99
[2023-02-08 11:44] VITALS: PULSE 68
--- NOTE | 2023-02-08 11:49 | ED.GENADULT ---
HPI - General Adult General Chief complaint: Unspecified Stated complaint: upset stomach Time Seen by Provider: 02/08/23 11:47 Source: patient Mode of arrival: ambulatory Limitations: no limitations History of Present Illness HPI narrative: Patient is 57 year old female who presents to the Emergency Department stating she felt cool and clammy and lightheaded when she got up and sitting and drinking her coffee. Denies chest pain or shortness of breath. Denies headache, cough, congestion, nausea, vomiting, diarrhea, urinary tract symptoms. Patient is poor historian. States family has her under a lot of stress. Denies smoking - Onset (ago): minute(s) Associated symptoms: denies other symptoms Treatments prior to arrival: none Related Data Home Medications Medication Instructions Recorded Confirmed pravastatin 10 mg tablet 10 mg PO HS 05/18/21 02/08/23 albuterol sulfate 90 mcg/actuation 2 puff inhalation PRN PRN Wheezing 02/08/23 02/08/23 aerosol inhaler lorazepam 0.5 mg tablet 0.5 mg PO HS 02/08/23 02/08/23 montelukast 10 mg tablet 10 mg PO DAILY 02/08/23 02/08/23 olanzapine 5 mg tablet 5 mg PO HS 02/08/23 02/08/23 Allergies Allergy/AdvReac Type Severity Reaction Status Date / Time iodine Allergy Severe Anaphylaxis Verified 02/08/23 11:36 iohexol Allergy Severe Anaphylaxis Verified 02/08/23 11:36 [From contrast - CT, X-RAY] codeine AdvReac Severe Seizure Verified 02/08/23 11:36 hydrocodone AdvReac Severe Seizure Verified 02/08/23 11:36 Review of Systems Review of Systems: All systems reviewed & are unremarkable except as noted in HPI and below Constitutional: Constitutional: Reports as per HPI, Denies chills, Denies fever(s), Denies headache(s), Reports lethargy and Reports weakness Eyes: Eyes: Reports as per HPI and Reports no additional eye complaints ENT: Reports system reviewed and no additional complaints, except as documented Cardiovascular: Cardiovascular: Reports as per HPI, Denies rapid heart rate, Denies irregular heart rhythm, Denies leg edema, Reports lightheadedness, Denies dyspnea and Denies slow heart rate Respiratory: Respiratory: Reports as per HPI, Reports no additional respiratory complaints, Denies cough and Denies dyspnea Gastrointestinal: Gastrointestinal: Reports as per HPI, Denies abdominal pain, Denies diarrhea, Denies nausea and Denies vomiting Genitourinary: Genitourinary: Reports no additional female genitourinary complaints, Reports as per HPI, Denies nocturia and Denies urinary urgency Musculoskeletal: Musculoskeletal: Reports no additional musculoskeletal complaints, Denies muscle weakness and Denies numbness Integumentary/Breasts: Skin/Breast: Reports system reviewed and no additional complaints, except as docu Neurologic: Reports system reviewed and no additional complaints, except as documented, Reports dizziness, Denies focal weakness, Denies numbness, Denies Sensory deficit (Neuro), Denies tingling and Reports weakness PMFSH Past Medical History Medical History Bipolar disorder Chronic obstructive pulmonary disease Hypersomnolence Hypertension Leg fracture, left Obstructive sleep apnea Mild--refuses CPAP uses oxygen at night Polycythemia secondary to smoking Pulmonary nodule Tobacco abuse Surgical History Surgical History H/O section History of History of cryosurgery History of ovarian cystectomy Partial left cystectomy complicated by infected hematoma Family History Family History Father Acute myocardial infarction Mother Acute myocardial infarction Cerebrovascular accident Social History Social History Social History: She has smoked a pack per day since her mid 20s. She never drinks alcohol. She denies illicit whiting
--- NOTE | 2023-02-08 11:54 | ECG_ITS ---
Measurements Intervals [place] Rate: 64 P: 70 DC: 151 QRS: 107 QRSD: 108 T: 46 QT: 440 QTc: 454 Interpretive Statements SINUS RHYTHM RIGHT AXIS DEVIATION INCOMPLETE RIGHT BUNDLE BRANCH BLOCK LOW QRS VOLTAGE IN PRECORDIAL LEADS BORDERLINE ECG COMPARED TO ECG 08/17/2021 18:45:08 NO SIGNIFICANT CHANGES Electronically Signed On 02-08-2023 12:20:14 CDT by Casimiro Fritz D.O.
[2023-02-08 12:21] LABS: Basophils Absolute Auto 0.07 K/mm3 (0.00-0.10); Basophils Percent Auto 0.7 % (0.0-1.0); Eosinophils Absolute Auto 0.09 K/mm3 (0.02-0.50); Eosinophils Percent Auto 0.8 % (1.0-6.0); Hematocrit 47.1 % (35.0-49.0); Hemoglobin 16.4 g/dL (12.0-15.0); Immature Granulocyte Absolute 0.03 K/mm3 (0.00-0.00); Immature Granulocyte Percent A 0.3 % (0.0-0.0); Lymphocytes Absolute Auto 1.11 K/mm3 (1.10-4.50); Lymphocytes Percent Auto 10.4 % (18.0-42.0); Mean Corpuscular HGB Conc 34.8 g/dL (32.0-36.0); Mean Corpuscular Hemoglobin 30.7 pg (27.0-31.0); Mean Corpuscular Volume 88.2 fL (78.0-102.0); Mean Platelet Volume 11.2 fl (9.2-11.8); Monocytes Absolute Auto 0.56 K/mm3 (0.10-0.90); Monocytes Percent Auto 5.2 % (2.0-11.0); Neutrophils Absolute Auto 8.8 K/mm3 (1.7-7.2); Neutrophils Percent Auto 82.6 % (50.0-70.0); Platelet Count Result 198 K/mm3 (150-420); Red Blood Count 5.34 M/mm3 (4.20-5.40); Red Cell Distribution Width 12.8 % (11.6-14.4); White Blood Count 10.7 K/mm3 (4.8-10.8)
[2023-02-08 12:38] LABS: Alanine Aminotransferase 10 U/L (14-59); Albumin Level 3.6 g/dL (3.4-5.0); Alkaline Phosphatase 56 U/L (46-116); Anion Gap 9 mmol/L (8-16); Aspartate Amino Transferase 17 U/L (15-37); Bilirubin,Total 0.4 mg/dL (0.00-1.00); Blood Urea Nitrogen 6 mg/dL (7-18); Calcium 9.3 mg/dL (8.5-10.1); Carbon Dioxide 31 mmol/L (21-32); Chloride 100 mmol/L (98-108); Estimated CRCL calculation 45 ml/min; Estimated Glomerular Filt Rate > 60; Glucose 137 mg/dL (70-99); Osmolality Calculated 289 mOsm/kg (285-295); Potassium 2.9 mmol/L (3.5-5.1); Sodium 140 mmol/L (136-145); Troponin I 4.2 ng/L (0.00-60.4)
[2023-02-08 12:45] VITALS: BP 133/78; PULSE 65
[2023-02-08 12:46] VITALS: BP 124/87; PULSE 69
[2023-02-08 12:47] VITALS: BP 124/88; PULSE 76
[2023-02-08] MEDS: SODIUM CHLORIDE 0.9% IV 1,000 ML 999 ML IV CONT (12:52)
[2023-02-08 12:59] LABS: Appearance Urine Clear (Clear); Bilirubin Urine 2+ (Negative); Blood Urine Negative (Negative); Glucose Urine UA Negative (Negative); Ketones Urine 1+ (Negative); Leukocyte Esterase Ur Negative (Negative); Nitrate Urine Negative (Negative); Protein Urine 2+ (Negative); Specific Grav Ur 1.025 (1.010-1.020); pH Urine 5.5 (5.0-8.0)
[2023-02-08 13:00] VITALS: BP 137/74; PULSE 64; RESP 12; O2SAT 98
[2023-02-08 13:03] LABS: Add Urine Microscopic? YES; Color Urine Dark Yellow (Yellow); RBC Urine None seen /hpf (0-2); Squamous Epithelial Cell Urine Moderate /hpf (Few); WBC Urine None seen /hpf (0-3)
[2023-02-08 13:04] LABS: Bacteria Urine Trace /hpf; Calcium Oxalate Crystals Urine Present /hpf; Mucus Urine Heavy /lpf
[2023-02-08 13:06] LABS: Amphetamine Screen Urine Negative (Negative); Barbiturate Screen Urine Negative (Negative); Benzodiazepines Screen Urine Negative (Negative); Cannabinoid Screen Urine Positive (Negative); Cocaine Screen Urine Negative (Negative); Methadone Screen Urine Negative (Negative); Opiate Screen Urine Negative (Negative); Phencyclidine Screen Urine Negative (Negative)
[2023-02-08] MEDS: POTASSIUM CHLORIDE 20 MEQ TABLET 40 MEQ PO (13:53)
--- NOTE | 2023-02-08 13:56 | PC.NURSE ---
Pt has completed approx 500 mL of NS bolus wants to be discharged. ERP states may proceed with discharge does not need to complete liter prior to D/C.
== END 2023-02-08 14:05 | disposition home or self-care (01) ==
PROVIDERS: Emergency Provider Emergency Medicine; PCP Internal Medicine
DX: I95.1 Orthostatic hypotension (principal); E87.6 Hypokalemia; E86.0 Dehydration; I10 Essential (primary) hypertension; F17.210 Nicotine dependence, cigarettes, uncomplicated; Z79.899 Other long term (current) drug therapy
CPT/HCPCS: 36415; 71046; 80053; 80307; 81001; 84484; 85025; 93005; 96360; 99284; A9270; J7030

== ENCOUNTER 2023-02-15 22:42 | Emergency (ER) | payer OTHER, SELFPAY ==
--- NOTE | ~2023-02-15 | XR_ITS ---
Clinical Indication: Dyspnea PA and lateral views of the chest: Comparison: 02/08/2023 Findings: The lungs are clear, without evidence of focal consolidation or pleural effusion. Possible COPD. Cardiomediastinal silhouette is within normal limits. Bones and soft tissues are unremarkable. Impression: Possible COPD. Clear lungs. Reviewed, dictated and finalized at location . Impression: Possible COPD. Clear lungs.
[2023-02-15 22:45] VITALS: BP 152/75; PULSE 68; PULSE 72; RESP 31; TEMP 36.7; O2SAT 99
--- NOTE | 2023-02-15 22:45 | PC.NURSE ---
director of property management, NIBP, SpO2, and EtCO2 monitors applied.
--- NOTE | 2023-02-15 22:47 | ECG_ITS ---
Measurements Intervals [place] Rate: 61 P: 73 HI: 172 QRS: 99 QRSD: 91 T: 43 QT: 443 QTc: 449 Interpretive Statements SINUS RHYTHM RIGHT AXIS DEVIATION INCOMPLETE RIGHT BUNDLE BRANCH BLOCK LOW QRS VOLTAGE IN PRECORDIAL LEADS BORDERLINE ECG COMPARED TO ECG 02/08/2023 12:14:15 NO SIGNIFICANT CHANGES Electronically Signed On 02-16-2023 6:46:04 CDT by Casimiro Fritz D.O.
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
[2023-02-15 23:06] VITALS: BP 156/72; PULSE 75; RESP 16; O2SAT 94
[2023-02-15 23:13] VITALS: PULSE 72; RESP 18; O2SAT 95
[2023-02-15 23:15] VITALS: PULSE 75; RESP 21; O2SAT 95
[2023-02-15 23:31] LABS: Basophils Absolute Auto 0.05 K/mm3 (0.00-0.10); Basophils Percent Auto 0.7 % (0.0-1.0); Eosinophils Absolute Auto 0.26 K/mm3 (0.02-0.50); Eosinophils Percent Auto 3.5 % (1.0-6.0); Hematocrit 42.2 % (35.0-49.0); Hemoglobin 14.4 g/dL (12.0-15.0); Immature Granulocyte Absolute 0.02 K/mm3 (0.00-0.00); Immature Granulocyte Percent A 0.3 % (0.0-0.0); Lymphocytes Absolute Auto 1.86 K/mm3 (1.10-4.50); Lymphocytes Percent Auto 24.9 % (18.0-42.0); Mean Corpuscular HGB Conc 34.1 g/dL (32.0-36.0); Mean Corpuscular Hemoglobin 30.4 pg (27.0-31.0); Mean Platelet Volume 11.5 fl (9.2-11.8); Monocytes Absolute Auto 0.59 K/mm3 (0.10-0.90); Monocytes Percent Auto 7.9 % (2.0-11.0); Neutrophils Absolute Auto 4.7 K/mm3 (1.7-7.2); Neutrophils Percent Auto 62.7 % (50.0-70.0); Platelet Count Result 189 K/mm3 (150-420); Red Blood Count 4.74 M/mm3 (4.20-5.40); Red Cell Distribution Width 12.8 % (11.6-14.4); White Blood Count 7.5 K/mm3 (4.8-10.8)
[2023-02-15 23:34] VITALS: PULSE 76; RESP 22; O2SAT 95
[2023-02-15 23:35] VITALS: BP 145/67; PULSE 67; RESP 13; O2SAT 97
--- NOTE | 2023-02-15 23:35 | PC.NURSE ---
PT returns from X-ray. Monitoring resumed. PT voices no new needs at this time. PT updated on expected timeframe of results. Call light in reach. Side rail up x 1.
[2023-02-15 23:56] LABS: Alanine Aminotransferase 13 U/L (14-59); Albumin Level 3.3 g/dL (3.4-5.0); Alkaline Phosphatase 50 U/L (46-116); Anion Gap 12 mmol/L (8-16); Aspartate Amino Transferase 12 U/L (15-37); Bilirubin,Total 0.3 mg/dL (0.00-1.00); Blood Urea Nitrogen 7 mg/dL (7-18); Carbon Dioxide 28 mmol/L (21-32); Chloride 103 mmol/L (98-108); Estimated CRCL calculation 50 ml/min; Estimated Glomerular Filt Rate > 60; Glucose 110 mg/dL (70-99); Magnesium 1.6 mg/dL (1.8-2.4); NT Pro B Type Natriuretic Pept 81 pg/mL (0-125); Osmolality Calculated 295 mOsm/kg (285-295); Potassium 2.8 mmol/L (3.5-5.1); Sodium 143 mmol/L (136-145); Total Protein 6.3 g/dL (6.4-8.2)
[2023-02-16 00:01] VITALS: PULSE 70; RESP 16; O2SAT 98
[2023-02-16 00:02] LABS: CRP < 0.5 mg/dL (0.0-0.9)
[2023-02-16] MEDS: methylPREDNISolone SOD SUCC 125 MG VIAL IV PUSH (00:31)
[2023-02-16] MEDS: POTASSIUM CHLORIDE 20 MEQ TABLET 40 MEQ PO (00:46)
--- NOTE | 2023-02-16 00:55 | PC.NURSE ---
Chart review acknowledged by this RN.
== END 2023-02-16 00:56 | disposition home or self-care (01) ==
PROVIDERS: Emergency Provider Emergency Medicine; PCP Internal Medicine
DX: J43.9 Emphysema, unspecified (principal); E83.42 Hypomagnesemia; E87.6 Hypokalemia; I10 Essential (primary) hypertension; F17.210 Nicotine dependence, cigarettes, uncomplicated
CPT/HCPCS: 36415; 71046; 80053; 83735; 83880; 84484; 85025; 86140; 93005; 96374; 99284; A9270; J2930

== ENCOUNTER 2023-11-30 09:23 | Outpatient (CLI) | payer OTHER, SELFPAY ==
[2023-11-30 09:40] LABS: Basophils Absolute Auto 0.04 K/mm3 (0.00-0.10); Basophils Percent Auto 0.6 % (0.0-1.0); Eosinophils Absolute Auto 0.11 K/mm3 (0.02-0.50); Eosinophils Percent Auto 1.6 % (1.0-6.0); Hematocrit 45.5 % (35.0-49.0); Immature Granulocyte Absolute 0.03 K/mm3 (0.00-0.00); Immature Granulocyte Percent A 0.4 % (0.0-0.0); Lymphocytes Absolute Auto 2.32 K/mm3 (1.10-4.50); Lymphocytes Percent Auto 33.7 % (18.0-42.0); Mean Corpuscular Hemoglobin 28.8 pg (27.0-31.0); Mean Corpuscular Volume 87.5 fL (78.0-102.0); Mean Platelet Volume 9.8 fl (9.2-11.8); Monocytes Absolute Auto 0.51 K/mm3 (0.10-0.90); Monocytes Percent Auto 7.4 % (2.0-11.0); Neutrophils Absolute Auto 3.9 K/mm3 (1.7-7.2); Neutrophils Percent Auto 56.3 % (50.0-70.0); Platelet Count Result 190 K/mm3 (150-420); White Blood Count 6.9 K/mm3 (4.8-10.8)
[2023-11-30 09:41] LABS: Appearance Urine Clear (Clear); Bilirubin Urine Negative (Negative); Blood Urine Negative (Negative); Color Urine Light Yellow (Yellow); Glucose Urine UA Negative (Negative); Ketones Urine Negative (Negative); Leukocyte Esterase Ur Negative (Negative); Nitrate Urine Negative (Negative); Protein Urine Negative (Negative); Specific Grav Ur <= 1.005 (1.010-1.020); Urobilinogen Urine 0.2 mg/dL (0.2-1.0)
[2023-11-30 09:51] LABS: Add Urine Microscopic? NO
[2023-11-30 10:27] LABS: Alanine Aminotransferase 21 U/L (14-59); Albumin Level 3.8 g/dL (3.4-5.0); Alkaline Phosphatase 36 U/L (46-116); Anion Gap 7 mmol/L (8-16); Aspartate Amino Transferase 15 U/L (15-37); Bilirubin,Total 0.3 mg/dL (0.00-1.00); Blood Urea Nitrogen 3 mg/dL (7-18); Calcium 8.5 mg/dL (8.5-10.1); Carbon Dioxide 33 mmol/L (21-32); Chloride 102 mmol/L (98-108); Cholesterol 243 mg/dL (0-200); Estimated Glomerular Filt Rate > 60; Glucose 107 mg/dL (70-99); HDL Direct 38 mg/dL (40-60); LDL Cholesterol Calculated 121 mg/dL (<130); Osmolality Calculated 290 mOsm/kg (285-295); Sodium 142 mmol/L (136-145); Thyroid Stimulating Hormone 1.37 uIU/mL (0.36-3.74); Total Protein 6.8 g/dL (6.4-8.2); Triglycerides 420 mg/dL (0-150)
[2023-11-30 11:06] LABS: LDL Cholesterol Direct 134 mg/dL (0-130)
[2023-12-01 09:52] LABS: Hemoglobin A1C 4.9 % (<5.7)
== END 2023-11-30 09:24 | disposition home or self-care (01) ==
LOC: CHSLAB 09:26
PROVIDERS: PCP Internal Medicine; Visit Provider Internal Medicine
DX: I10 Essential (primary) hypertension (principal); E78.5 Hyperlipidemia, unspecified; Z78.0 Asymptomatic menopausal state; R73.01 Impaired fasting glucose
CPT/HCPCS: 36415; 80053; 80061; 81003; 83036; 83721; 84443; 85025

== ENCOUNTER 2023-12-06 13:59 | Outpatient (CLI) | payer OTHER, SELFPAY ==
--- NOTE | ~2023-12-06 | MM_ITS ---
EXAMINATION: MM screening an[facility] BI w azam HISTORY: Screening mammogram TECHNIQUE: Craniocaudal and mediolateral oblique 3-D tomosynthesis images were obtained and synthetic 2-D images were generated. CAD analysis was submitted and interpreted. COMPARISON: 02/15/2015 diagnostic left mammogram and limited left breast ultrasound examination 02/14/2015 bilateral screening mammogram BREAST PARENCHYMAL COMPOSITION: There are scattered areas of fibroglandular density. FINDINGS: There is no evidence of suspicious mass, calcification, or architectural distortion to sugg est malignancy in either breast. There has been no suspicious interval change. IMPRESSION: 1. No mammographic evidence of malignancy. 2. Recommend routine screening mammography in one year. BI-RADS Category 1: Negative Reviewed, dictated and finalized at location A. [employer]
--- NOTE | ~2023-12-06 | DEXA_ITS ---
Bone Density Report Name: JOAO ABERNATHY Age: 58 Sex: Female Ethnicity: White Date of : 1965 Indication: postmenopausal; screening for osteoporosis; height loss; Referring Provider: GEOFF LOUIS Study: Bone densitometry was performed. Exam Date: December 06, 2023 Accession number: [id number] Bone Density: Region BMD T-score Z-score Classification AP Spine(L1-L4) 0.910 -1.2 0.2 Osteopenia Femoral Neck (Left) 0.580 -2.4 -1.1 Osteopenia Total Hip (Left) 0.624 -2.6 -1.6 Osteoporosis Femoral Neck (Right) 0.543 -2.8 -1.5 Osteoporosis Total Hip (Right) 0.615 -2.7 -1.7 Osteoporosis Femoral Neck Mean 0.562 -2.6 -1.3 Osteoporosis Total Hip Mean 0.620 -2.6 -1.7 Osteoporosis World Health Organization criteria for BMD impression classify patients as: Normal (T-score at or above -1.0), Osteopenia (T-score between -1.0 and -2.5), or Osteoporosis (T-score at or below -2.5). 10-year Fracture Risk: FRAX not reported because: Some T-score for Spine Total or Hip Total or Femoral Neck at or below -2.5 Clinical Information Provided by Patient: Smokes Patient maximum height was 61.0 Menopause Age: 48 No regular weight bearing exercise Drinks caffeinated beverages Onset of menses at age 13 Number of children 5 Impression: The patient has osteoporosis, based on the Right Femoral Neck T-score. The patient has risk factors, including: smoking. Discussion: INCREASED RISK OF FRACTURE. BONE DENSITY IS UNDESIRABLY LOW AT ONE OR MORE SKELETAL SITES, CONSISTENT WITH POSTMENOPAUSAL OSTEOPOROSIS. This patient's lowest T-score meets the World Health Organization's (WHO) criteria for osteoporosis at one or more sites (T-score -2.5 or below). In untreated patients, the risk of osteoporotic fracture increases approximately two-fold for each 1.0 SD decrease in T-score. Low bone density is not the only risk factor for fracture; also consider factors such as patient's age, frailty or poor health, risk of falling, risk of injury, previous osteoporotic fracture, family history of osteoporosis, cigarette smoking, low body weight, etc. Not everyone with low bone mineral density has osteoporosis; osteomalacia and other metabolic bone disorders should also be considered. Patients who have osteoporosis should be evaluated for specific diseases and conditions (secondary causes) that may cause or contribute to bone loss. The [place] Association of Clinical Endocrinologists (AACE) and National Osteoporosis Foundation (NOF) recommend pharmacologic intervention for all postmenopausal women whose T-score is in this range. The patient should follow a healthful lifestyle (good nutrition with adequate calcium and vitamin D, and appropriate weight-bearing exercise). Follow-Up: Consider a repeat BMD and Vertebral Fracture Assessment (VFA) exam in 2 years or sooner if medically necessary, to reassess this vivek
--- NOTE | ~2023-12-06 | CT_ITS ---
EXAMINATION:CT lung screening DATE: 12/06/2023 14:17 INDICATION: Personal history of nicotine dependence. Current smoker with 30 pack year history. TECHNIQUE: Computed tomography (CT) of the chest was performed without intravenous contrast. Automate d exposure control and iterative reconstruction technique were employed. The dose-length product (DLP ) was 51.54 mGy-cm. COMPARISON: Chest CT 08/01/2018 FINDINGS: There is mild emphysema. The lungs demonstrate mild atelectasis. Calcified bilateral lung n odules are consistent with old granulomatous disease. No pleural effusion. The heart size is normal. No pericardial effusion. There is mild thoracic spondylosis. IMPRESSION: 1. Lung-RADS category 1: Negative. Continue annual screening with noncontrast low-dose chest CT in 12 months. Reviewed, dictated and finalized at location E. EQUIN REFINISHER IMPRESSION: 1. Lung-RADS category 1: Negative. Continue annual screening with noncontrast l ow-dose chest CT in 12 months.
== END 2023-12-06 14:00 | disposition home or self-care (01) ==
LOC: CHSIMG 14:02
PROVIDERS: PCP Internal Medicine; Visit Provider Internal Medicine
DX: Z12.31 Encounter for screening mammogram for malignant neoplasm of breast (principal); Z12.2 Encounter for screening for malignant neoplasm of respiratory organs; Z78.0 Asymptomatic menopausal state; M85.89 Other specified disorders of bone density and structure, multiple sites; M81.0 Age-related osteoporosis without current pathological fracture; Z87.891 Personal history of nicotine dependence
CPT/HCPCS: 71271; 77063; 77067; 77080

== ENCOUNTER 2024-01-11 10:19 | Emergency (ER) | payer OTHER, SELFPAY ==
[2024-01-11 10:19] VITALS: BP 134/79; PULSE 84; RESP 16; TEMP 36.3; O2SAT 96
--- NOTE | 2024-01-11 10:20 | ED.ANIMALBIT ---
HPI - Animal Bite General Chief Complaint: Animal Bite Stated Complaint: spider bite Time Seen by Provider: 01/11/24 10:20 Source: patient Mode of arrival: ambulatory Limitations: no limitations History of Present Illness HPI narrative: patient is a 58-year-old female with a left buttocks insect bite (spider) 1 hour ago. MD complaint: animal bite ( Spider) Onset (ago): hour(s) (1) Animal: other ( spider) Mechanism: bite Location: buttocks ( left) Pain description: burning Severity scale (1-10): 2 Context: unprovoked Associated symptoms: none Related Data Home Medications Medication Instructions Recorded Confirmed pravastatin 10 mg tablet 10 mg PO HS 05/18/21 01/11/24 albuterol sulfate 90 mcg/actuation 2 puff inhalation PRN PRN Wheezing 02/08/23 01/11/24 aerosol inhaler lorazepam 0.5 mg tablet 0.5 mg PO HS 02/08/23 01/11/24 montelukast 10 mg tablet 10 mg PO DAILY 02/08/23 01/11/24 olanzapine 5 mg tablet 5 mg PO HS 02/08/23 01/11/24 Allergies Allergy/AdvReac Type Severity Reaction Status Date / Time iodine Allergy Severe Anaphylaxis Verified 01/11/24 10:22 iohexol Allergy Severe Anaphylaxis Verified 01/11/24 10:22 [From contrast - CT, X-RAY] codeine AdvReac Severe Seizure Verified 01/11/24 10:22 hydrocodone AdvReac Severe Seizure Verified 01/11/24 10:22 Review of Systems Review of Systems: All systems reviewed & are unremarkable except as noted in HPI and below Constitutional: Constitutional: Reports no additional constitutional complaints Eyes: Eyes: Reports no additional eye complaints ENT: Reports system reviewed and no additional complaints, except as documented Cardiovascular: Cardiovascular: Reports no additional cardiovascular complaints Respiratory: Respiratory: Reports no additional respiratory complaints Gastrointestinal: Gastrointestinal: Reports no additional gastrointestinal complaints Genitourinary: Genitourinary: Reports no additional female genitourinary complaints Musculoskeletal: Musculoskeletal: Reports no additional musculoskeletal complaints Integumentary/Breasts: Skin/Breast: Reports system reviewed and no additional complaints, except as docu Neurologic: Reports system reviewed and no additional complaints, except as documented Psychiatric: Psychiatric: Reports no additional psychiatric complaints Endocrine: Endocrine: Reports no additional endocrine complaints Hematologic/Lymphatic: Hematologic/Lymphatic: Reports no additional hematologic/lymphatic complaints Allergic/Immunologic: Allergic/Immunologic: Reports no additional allergic/immunologic complaints PMFSH Past Medical History Medical History Bipolar disorder Chronic obstructive pulmonary disease Hypersomnolence Hypertension Leg fracture, left Obstructive sleep apnea Mild--refuses CPAP uses oxygen at night Polycythemia secondary to smoking Pulmonary nodule Tobacco abuse Surgical History Surgical History H/O section History of History of cryosurgery History of ovarian cystectomy Partial left cystectomy complicated by infected hematoma Family History Family History Father Acute myocardial infarction Mother Acute myocardial infarction Cerebrovascular accident Social History Social History Social History: She has smoked a pack per day since her mid 20s. She never drinks alcohol. She denies illicit substance use. She lives with her 15-year-old son. She is on disability due to her bipolar disorder. Primary care physician: Dr. Julian Chandra Code status: Full code Smoking packs per day: 2 Smoking cigarettes per day: 40.0 Years smoked: 30 Smoking pack-years: 60.00 Smoking status: Current every day smoker Tobacco type: cigarettes Second h
[2024-01-11 10:45] VITALS: BP 134/79; PULSE 84; RESP 17; TEMP 36.3; O2SAT 96
== END 2024-01-11 10:45 | disposition home or self-care (01) ==
PROVIDERS: Emergency Provider Emergency Medicine; PCP Internal Medicine
DX: T63.301A Toxic effect of unspecified spider venom, accidental (unintentional), initial encounter (principal); F31.9 Bipolar disorder, unspecified; I10 Essential (primary) hypertension; F17.210 Nicotine dependence, cigarettes, uncomplicated
CPT/HCPCS: 99283

== ENCOUNTER 2024-03-01 10:34 | Outpatient (CLI) | payer OTHER, SELFPAY ==
[2024-03-01 10:56] LABS: Basophils Absolute Auto 0.06 K/mm3 (0.00-0.10); Basophils Percent Auto 0.7 % (0.0-1.0); Eosinophils Absolute Auto 0.11 K/mm3 (0.02-0.50); Eosinophils Percent Auto 1.4 % (1.0-6.0); Hematocrit 45.8 % (35.0-49.0); Hemoglobin 15.3 g/dL (12.0-15.0); Immature Granulocyte Absolute 0.02 K/mm3 (0.00-0.00); Immature Granulocyte Percent A 0.2 % (0.0-0.0); Lymphocytes Absolute Auto 1.79 K/mm3 (1.10-4.50); Lymphocytes Percent Auto 22.2 % (18.0-42.0); Mean Corpuscular HGB Conc 33.4 g/dL (32-36); Mean Corpuscular Hemoglobin 29.3 pg (27.0-31.0); Mean Corpuscular Volume 87.7 fL (78.0-102.0); Mean Platelet Volume 10.1 fl (9.2-11.8); Monocytes Absolute Auto 0.41 K/mm3 (0.10-0.90); Monocytes Percent Auto 5.1 % (2.0-11.0); Neutrophils Absolute Auto 5.66 K/mm3 (1.70-7.20); Neutrophils Percent Auto 70.4 % (50.0-70.0); Platelet Count Result 218 K/mm3 (150-420); Red Blood Count 5.22 M/mm3 (4.20-5.40); Red Cell Distribution Width 12.6 % (11.6-14.4); White Blood Count 8.1 K/mm3 (4.8-10.8)
[2024-03-01 11:05] LABS: Hemoglobin A1C 5.4 % (<5.7)
[2024-03-01 11:38] LABS: Alanine Aminotransferase 18 U/L (14-59); Albumin Level 3.6 g/dL (3.4-5.0); Alkaline Phosphatase 41 U/L (46-116); Anion Gap 15 mmol/L (4-12); Aspartate Amino Transferase 14 U/L (15-37); Bilirubin,Total 0.2 mg/dL (0.00-1.00); Blood Urea Nitrogen 7 mg/dL (7-18); Calcium 8.8 mg/dL (8.5-10.1); Carbon Dioxide 27 mmol/L (21-32); Chloride 99 mmol/L (98-108); Cholesterol 207 mg/dL (0-200); Estimated Glomerular Filt Rate > 60; Glucose 135 mg/dL (70-99); HDL Direct 32 mg/dL (40-60); LDL Cholesterol Calculated 119 mg/dL (<130); Osmolality Calculated 292 mOsm/kg (285-295); Potassium 4.1 mmol/L (3.5-5.1); Sodium 141 mmol/L (136-145); Total Protein 6.7 g/dL (6.4-8.2); Triglycerides 280 mg/dL (0-150)
== END 2024-03-01 10:35 | disposition home or self-care (01) ==
LOC: CHSLAB 10:36
PROVIDERS: PCP Internal Medicine; Visit Provider Internal Medicine
DX: J44.9 Chronic obstructive pulmonary disease, unspecified (principal); E78.5 Hyperlipidemia, unspecified; R73.9 Hyperglycemia, unspecified
CPT/HCPCS: 36415; 80053; 80061; 83036; 85025

== ENCOUNTER 2024-12-26 12:17 | Outpatient (CLI) | payer MEDICARE, MEDICAID, SELFPAY ==
--- NOTE | ~2024-12-26 | CT_ITS ---
EXAMINATION: CT lung screening DATE: 12/26/2024 12:47 INDICATION: History of nicotine dependence TECHNIQUE: Computed tomography (CT) of the chest was performed without intravenous contrast. The dose -length product was 61.21 mGy-cm. Automated exposure control and iterative reconstruction technique w ere employed. COMPARISON: CT dated 12/06/2023 FINDINGS: Lung bases unremarkable. Heart size normal. No thoracic lymphadenopathy. No significant ple ural or pericardial effusion. There is mild atherosclerosis of the aorta. Upper abdomen is unremarkab le. There is a calcified granuloma in the right lower lobe. There is right middle lobe atelectasis/sc arring. There are a few small scattered 2 mm nodules in the upper lobes, most likely benign. IMPRESSION: 1. Lung-RADS category 2: Benign appearance or behavior. Continue annual screening with noncontrast lo w-dose chest CT in 12 months. Reviewed, dictated and finalized at location A. IMPRESSION: 1. Lung-RADS category 2: Benign appearance or behavior. Continue annual screeni ng with noncontrast low-dose chest CT in 12 months.
--- NOTE | ~2024-12-26 | MM_ITS ---
EXAMINATION: MM screening [facility] BI w azam HISTORY: Screening TECHNIQUE: Craniocaudal and mediolateral oblique 3-D tomosynthesis images were obtained and synthetic 2-D images were generated. CAD analysis was submitted and interpreted. COMPARISON: 12/06/2023 and dating back to 02/14/2015 BREAST PARENCHYMAL COMPOSITION: There are scattered areas of fibroglandular density. FINDINGS: Redemonstration of a (likely) intramammary lymph node within the upper inner left breast, s table dating back to 2014. Stable parenchymal pattern without suspicious microcalcifications, architectural distortion, discrete masses or significant asymmetry. IMPRESSION: 1. No mammographic evidence of malignancy. 2. Recommend routine screening mammography in one year. BI-RADS Category 2: Benign finding(s). Reviewed, dictated and finalized at location A.
--- OUTSIDE RECORDS SUMMARY | 2024-12-26 14:18 | XMS_ITS | Clinical Summary ---
Author Organization [facility] Address [facility] [place] [address] Care Team Providers Care Cargo Router Name Role Phone Julian Faulkner MD Primary Care Provider Allergies Active Allergy Reactions Criticality Noted Date Comments Citalopram Unknown 04/21/2019 Codeine Unknown 04/21/2019 Haloperidol Unknown 04/21/2019 Iodine Unknown 04/21/2019 Medications lorazepam 0.5 MG tablet TAKE 1 TABLET BY MOUTH EVERY DAY AT BEDTIME NEEDED 0 04/11/2019 Active VENTOLIN HFA 108 (90 Base) MCG/ACT inhaler Inhale 2 puffs into the lungs every 4 (four) hours as needed. 3 02/24/2019 Active amlodipine 10 MG tablet Take 10 mg by mouth nightly at bedtime. at bedtime. 2 04/12/2019 Active montelukast 10 MG tablet Take 10 mg by mouth daily. 2 04/12/2019 Active OLANZapine 5 MG tablet Take 5 mg by mouth nightly at bedtime. 2 04/12/2019 Active pravastatin 10 MG tablet TAKE 1 TABLET(S) BY MOUTH AT BEDTIME 0 02/20/2019 Active traMADol 50 MG tablet TAKE 1 TABLET BY MOUTH EVERY 6 HOURS NEEDED FOR PAIN 0 04/12/2019 Active Active Problems Problem Noted Date Diagnosed Date Contusion of right knee, subsequent encounter Closed fracture of lateral p ortion of left tibial plateau, initial encounter 04/21/2019 Social History Tobacco Use Types Packs/Day Years Used Date Smoking Tobacco: Every Day Cigarettes Smokeless Tobacco: Never Alcohol Use Standard Drinks/Week Comments No 0 (1 standard drink = 0.6 oz pur e alcohol) AUDIT-C Answer Date Recorded Frequency of Alcohol Consumption Never 04/21/2019 Average Number of Drinks Not on file 019 Frequency of Binge Drinking Not on file 04/03 Comments Unknown Sex and Gender Information Value Date Recorded Sex Assigned at Not on file 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 Gender Identity Not on file Sexual Orientation Not on file Last Filed Vital Signs Vital Sign Reading Time Taken Comments Blood Pressure - - Pulse - - Temperature - - Respiratory Rate - - Oxygen Saturation - - Inhaled Oxygen Concentration - - Weight 52.2 kg (115 lb) 04/21/2019 10:29 AM CDT Height 154.9 cm (5' 1 ) 04/21/2019 10:29 AM CDT Body Mass Index 21.73 04/21/2019 10:29 AM CDT Plan of Treatment Health Maintenance Due Date Last Done Comments Cervical Cancer Screening Pa p Smear (Age 30 to 64) Every 3 Years 1963 Colorectal Cancer Screening Colonoscopy (10 Years) 1963 Annual Physical 1966 Pneumococcal Vaccine: Pediat rics (0 to 5 Years) and At-Risk Patients (6 to 64 Years) (1 of 2 - PCV) 1969 Hepatitis C 1981 DTaP, Tdap and Td Vaccines ( 1 - Tdap) 1982 Cervical Cancer Screening Pa p with HPV Testing (Age 30 to 64) Every 5 Years 1993 Cervical Cancer Screening with HPV 1993 Mammogram Screening 2003 Zoster Vaccines (1 of 2) 2013 COVID-19 Vaccine (2023-2 5 season) 2024 Influenza Adult (#1) 2024 RSV Immunization or 60+ Years (1 - 1-dose 75+ series) 2038 Meningococcal B Vaccine Aged Out No l onger eligible based on patient's age to complete this topic Meningococcal Vaccine Aged Out No claudia ramya eligible based on patient's age to complete this topic RSV Immunizations Under 20 Months Aged Out No longer eligible based on patient's age to complete this topic Insurance [address] [place] [address] MEDICARE MEDICAID Care Teams Cargo Router Relationship Specialty Start Date End Date Julian Faulkner MD [address] [place] [address] PCP - General INTERNAL MEDICINE 04/18/19
--- OUTSIDE RECORDS SUMMARY | 2024-12-26 14:18 | XMS_ITS | CONTINUITY OF CARE DOCUMENT ---
Author Name pratibha, jorge luisser Address Unknown Organization [facility] Address [address] [place] [address] Phone [phone] Care Team Providers Care Vulcanizing Press Operator Name Role Phone Ben Blanca MD Unavailable GEOFF LOUIS MD Unavailable [phone] GEOFF LOUIS MD Unavailable PROBLEMS Condition Status Date Provider Notes Family History Coronary Hear t Disease male < 55: active ? Ben Blanca MD HTN essential active Ben Blanca MD Hypercholesterolemia active Ben Blanca MD Abnormal electrocardiogram active Ben cheng MD Tobacco abuse active Ben Blanca MD COPD active Ben Blanca MD ENCOUNTERS Date Type Provider Location Encounter Diag nosis - In-person encounter Office Visit [facility] COPD - In-person encounter Office Visit [facility] Family History Coronary Heart Disease male < 55:HTN essentialHypercholesterolemiaAbnormal electrocardiogramTobacco abuse VITAL SIGNS Date Observation Value Provider pulse rate 99 /min Ben Blanca MD oxygen saturation, oximetry 99 % Ben Blanca MD respiratory rate E&M 16 /min Ben hammonds MD weight E&M 124 [lb_av] Ben Blanca MD blood pressure, diastolic 78 mm[Hg] Us mayte Blanca MD blood pressure, systolic 128 mm[Hg] Trey Blanca MD pulse rate 74 /min Ben Blanca MD oxygen saturation, oximetry 99 % Ben Blanca MD respiratory rate E&M 20 /min Ben hammonds MD weight E&M 124 [lb_av] Ben Blanca MD height E&M 61 [in_i] Ben Blanca MD ALLERGIES Allergy Name Onset Date Reaction Criticality Status IODINE High Criticality active CODEINE Seizures Seizures High Criticality a ctive HISTORY OF MEDICATION USE Medication Status Instructions Dates Provider Indications Com ments FAMOTIDINE 40 MG ORAL TABLET active ONE TAB. DAILY Ben Blanca MD AMLODIPINE BESYLATE 10 MG ORAL TABLET active Ben Blanca MD LORAZEPAM 0.5 MG ORAL TABLET active Ben Blanca MD PROAIR HFA AEROSOL SOLUTION active Ben Blanca MD SOCIAL HISTORY Date Observation Value Provider smoking/tobacco cess ation, patient education and counseling yes Ben Blanca MD number of years as a smoker 26 a Ben Blanca MD smoking history, tot al pack/day 1 Ben Blanca MD cigarette use yes Ben Davis smoking status Current every day smoker U sparkle Blanca MD social history reviewed E&M revi ewed - no changes required Ben Blanca MD social history reviewed E&M revi ewed - no changes required Ben Blanca MD number of years as a smoker 26 a Ben Blanca MD smoking history, tot al pack/day 1 Ben Blanca MD cigarette use yes Ben Davis social history E&M Occupation: D isabled M arital status: Single C hildren: 4 P atient currently smokes every day. 1 ppd smoker A lcohol Use - no S moking- yes C ounseled to quit- yes Ben Blanca MD smoking/tobacco cess ation, patient education and counseling yes Ben Blanca MD smoking status current every day smoker U sparkle Blanca MD FAMILY HISTORY Family Member Condition Paternal Grandfather Family History Guy nary Heart Disease male < 55: Father Family History of Co ronary Artery Disease: INSURANCE PROVIDERS Payer name Policy type / Coverage type [place] [employer] Medicaid 0 [id number] TREATMENT PLAN Date Name Performer Follow-up:The Patien t was reencouraged to stop smoking. Ben Blanca MD Date Name Full PFT Complete Echo
== END 2024-12-26 12:18 | disposition home or self-care (01) ==
LOC: CHSIMG 12:20
PROVIDERS: PCP Internal Medicine; Visit Provider Internal Medicine
DX: Z12.31 Encounter for screening mammogram for malignant neoplasm of breast (principal); Z12.2 Encounter for screening for malignant neoplasm of respiratory organs; Z87.891 Personal history of nicotine dependence
CPT/HCPCS: 71271; 77063; 77067

== ENCOUNTER 2025-05-07 11:38 | Outpatient (CLI) | payer OTHER, SELFPAY ==
[2025-05-07 11:58] LABS: Hematocrit 45.5 % (35.0-49.0); Hemoglobin 15.3 g/dL (12.0-15.0); Mean Corpuscular HGB Conc 33.6 g/dL (32-36); Mean Corpuscular Hemoglobin 29.3 pg (27.0-31.0); Mean Corpuscular Volume 87.2 fL (78.0-102.0); Platelet Count Result 235 K/mm3 (150-420); Red Blood Count 5.22 M/mm3 (4.20-5.40); White Blood Count 7.1 K/mm3 (4.8-10.8)
--- OUTSIDE RECORDS SUMMARY | 2025-05-07 12:01 | XMS_ITS | Clinical Summary ---
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 Gender Identity Not on file Sexual Orientation Not on file Last Filed Vital Signs Vital Sign Reading Time Taken Comments Blood Pressure - - Pulse - - Temperature - - Respiratory Rate - - Oxygen Saturation - - Inhaled Oxygen Concentration - - Weight 52.2 kg (115 lb) 04/21/2019 10:29 AM CDT Height 154.9 cm (5' 1) 04/21/2019 10:29 AM CDT Body Mass Index 21.73 04/21/2019 10:29 AM CDT Plan of Treatment Health Maintenance Due Date Last Done Comments Cervical Cancer Screening Pa p Smear (Age 30 to 64) Every 3 Years 1965 Colorectal Cancer Screening Colonoscopy (10 Years) 1963 Annual Physical 1966 Hepatitis C 1981 DTaP, Tdap and Td Vaccines ( 1 - Tdap) 1982 Pneumococcal Vaccine: 50+ Ye ars (1 of 2 - PCV) 1982 Cervical Cancer Screening Pa p with HPV Testing (Age 30 to 64) Every 5 Years 1993 Cervical Cancer Screening with HPV 1993 Mammogram Screening 2003 Zoster Vaccines (1 of 2) 2013 COVID-19 Vaccine (2023-2 5 season) 2024 RSV Immunization or 60+ Years (1 [...] patient's age to complete this topic Insurance MEDICARE MEDICAID Care Teams Sweat Box Attendant Relationship Specialty Start Date End Date Julian Faulkner MD [address] [place] [id number] PCP - General INTERNAL MEDICINE 04/18/19
[2025-05-07 12:33] LABS: Alanine Aminotransferase 40 U/L (6-35); Albumin Level 5.0 g/dL (3.5-5.1); Alkaline Phosphatase 46 U/L (38-126); Anion Gap 12 mmol/L (4-12); Aspartate Amino Transferase 48 U/L (14-36); Bilirubin,Total 0.6 mg/dL (0.2-1.3); Blood Urea Nitrogen 6 mg/dL (7-17); Calcium 9.4 mg/dL (8.4-10.2); Carbon Dioxide 28 mmol/L (22-30); Chloride 102 mmol/L (98-107); Cholesterol 233 mg/dL (0-200); Estimated Glomerular Filt Rate > 60; Glucose 103 mg/dL (65-110); HDL Direct 48 mg/dL; Osmolality Calculated 291 mOsm/kg (285-295); Potassium 4.0 mmol/L (3.4-5.0); Sodium 142 mmol/L (137-145); Total Protein 7.9 g/dL (6.3-8.2); Triglycerides 328 mg/dL (<150)
== END 2025-05-07 11:39 | disposition home or self-care (01) ==
LOC: CHSLAB 11:41
PROVIDERS: PCP Internal Medicine; Visit Provider Internal Medicine
DX: I10 Essential (primary) hypertension (principal); E78.5 Hyperlipidemia, unspecified; F31.9 Bipolar disorder, unspecified
CPT/HCPCS: 36415; 80053; 80061; 85027

== ENCOUNTER 2025-05-18 08:23 | Outpatient (CLI) | payer OTHER, SELFPAY ==
--- NOTE | ~2025-05-18 | US_ITS ---
US right upper quadrant INDICATION: Elevated liver enzymes PROCEDURE: Realtime right upper abdominal ultrasound. COMPARISON: No prior studies for comparison. FINDINGS: The pancreas is normal without focal mass or pancreatic ductal dilation. Liver echotexture is increased, consistent with fatty infiltration. There is normal directional flow in the portal ve in. The gallbladder is normal without stones, gallbladder wall thickening or pericholecystic fluid. Comm on bile duct measures 5 mm. No sonographic Curry's sign. IMPRESSION: 1: Fatty infiltration of the liver. Reviewed, dictated and finalized at location A.
--- OUTSIDE RECORDS SUMMARY | 2025-05-18 08:27 | XMS_ITS | Clinical Summary ---
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
== END 2025-05-18 08:24 | disposition home or self-care (01) ==
LOC: CHSIMG 08:24
PROVIDERS: PCP Internal Medicine; Visit Provider Internal Medicine
DX: R94.4 Abnormal results of kidney function studies (principal); K76.0 Fatty (change of) liver, not elsewhere classified
CPT/HCPCS: 76705

== ENCOUNTER 2025-09-11 09:22 | Outpatient (CLI) | payer OTHER, SELFPAY ==
[2025-09-11 09:51] LABS: Hemoglobin A1C 5.4 % (<5.7)
[2025-09-11 09:55] LABS: Alanine Aminotransferase 34 U/L (6-35); Albumin Level 4.8 g/dL (3.5-5.1); Alkaline Phosphatase 46 U/L (38-126); Anion Gap 12 mmol/L (4-12); Aspartate Amino Transferase 32 U/L (14-36); Bilirubin,Total 0.4 mg/dL (0.2-1.3); Blood Urea Nitrogen 6 mg/dL (7-17); Calcium 9.5 mg/dL (8.4-10.2); Carbon Dioxide 28 mmol/L (22-30); Chloride 102 mmol/L (98-107); Cholesterol 215 mg/dL (0-200); Estimated Glomerular Filt Rate > 60; Glucose 131 mg/dL (65-110); HDL Direct 46 mg/dL; Osmolality Calculated 293 mOsm/kg (285-295); Potassium 3.7 mmol/L (3.4-5.0); Sodium 142 mmol/L (137-145); Total Protein 7.7 g/dL (6.3-8.2); Triglycerides 207 mg/dL (<150)
== END 2025-09-11 09:23 | disposition home or self-care (01) ==
LOC: CHSLAB 09:27
PROVIDERS: PCP Internal Medicine
DX: K76.0 Fatty (change of) liver, not elsewhere classified (principal); E78.5 Hyperlipidemia, unspecified; F31.9 Bipolar disorder, unspecified; F41.1 Generalized anxiety disorder
CPT/HCPCS: 36415; 80053; 80061; 80164; 82248; 83036